=== PATIENT | female | born 1970 | race American Indian/Alaskan Native ===

== ENCOUNTER 2017-10-29 10:21 | Emergency (ER) | payer MEDICAID ==
[2017-10-29 10:23] VITALS: BMI 47.8
[2017-10-29] MEDS ORDERED: Sodium Chloride 0.9% 500 ML IV STA (11:05)
--- NOTE | 2017-10-29 11:14 | ED PDOC ---
HPI: General Adult Time Seen by Provider: 10/29/17 10:29 Chief Complaint (Nursing): Dizziness/Lightheaded Chief Complaint (Provider): Dizziness History Per: Patient History/Exam Limitations: no limitations Onset/Duration Of Symptoms: Days Additional Complaint(s): Pt. with dizziness like room spinning. Has room spinning sensation. Occurs on sudden movement and goes away when still. No numbness, tingles, nasuea, vomt, diarrhea, weakness, chest pain, dyspnea, headaches, vision changes. Had dialysis yesterday. Past Medical History Reviewed: Nursing Documentation, Vital Signs Vital Signs: Last Vital Signs Temp 98.5 F 10/29/17 10:24 Pulse 98 H 10/29/17 10:24 Resp 20 10/29/17 10:24 BP 122/87 10/29/17 10:24 Pulse Ox 96 10/29/17 11:16 - Medical History PMH: Anemia, Depression, HTN, End Stage Renal Disease, Chronic Kidney Disease Denies: Asthma (denies), Diabetes, Hepatitis, HIV, Seizures, Sexually Transmitted Disease - Surgical History Surgical History: - Family History Family History: States: Unknown Family Hx - Social History Alcohol: None - Home Medications Home Medications: Ambulatory Orders Medication Instructions Recorded Famotidine 20 mg PO DAILY 08/09/13 Folic Acid/Vitamin B Complex 1 tab PO DAILY 05/17/15 [Lysiplex] B Complex W-C No.20/Folic Acid 1 cap PO DAILY 04/08/17 [Ruy Caps Softgel] Cinacalcet [Sensipar] 30 mg PO DAILY 04/08/17 Metoprolol Tartrate [Lopressor] 25 mg PO Q12 tab 04/11/17 Mirtazapine [Remeron] 15 mg PO HS #30 tab 04/11/17 Sevelamer Carbonate [Renvela] 2,400 mg PO TIDWM 04/11/17 cloNIDine [Catapres] 0.1 mg PO Q12 tab 04/11/17 Meclizine [Meclizine*] 25 mg PO Q12 PRN #10 tab 10/29/17 - Allergies Allergies/Adverse Reactions: Allergies Allergy/AdvReac Type Severity Reaction Status Date / Time No Known Allergies Allergy Verified 04/08/17 11:13 Review of Systems ROS Statement: Except As Marked, All Systems Reviewed And Found Negative Neurological: Positive for: Dizziness Physical Exam - Reviewed Nursing Documentation Reviewed: Yes Vital Signs Reviewed: Yes - Physical Exam Appears: Positive for: Non-toxic, No Acute Distress Head Exam: Positive for: ATRAUMATIC, NORMAL INSPECTION, NORMOCEPHALIC Skin: Positive for: Normal Color, Warm, DRY Eye Exam: Positive for: EOMI, Normal appearance, PERRL ENT: Positive for: Normal ENT Inspection Neck: Positive for: Normal, Painless ROM Cardiovascular/Chest: Positive for: Regular Rate, Rhythm Respiratory: Positive for: CNT, Normal Breath Sounds Gastrointestinal/Abdominal: Positive for: Normal Exam, Soft. Negative for: Tenderness Back: Positive for: Normal Inspection. Negative for: L CVA Tenderness, R CVA Tenderness Extremity: Positive for: Normal ROM. Negative for: Tenderness, Pedal Edema Neurologic/Psych: Positive for: Alert, mayonnaise mixer II-XII, Oriented. Negative for: Motor/Sensory Deficits, Aphasia, Facial Droop - Laboratory Results Result Diagrams: 10/29/17 12:15 10/29/17 12:15 Interpretation Of Abn Labs: 12.4 wbc; elevated bun/cr - ECG ECG: Positive for: Interpreted By Me, Viewed By Me ECG Rhythm: Positive for: Normal QRS, Normal ST Segment O2 Sat by Pulse Oximetry: 96 Pulse Ox Interpretation: Normal - CT Scan/US ct Other Rad Studies (CT/US): Read By Radiologist Other Rad Interpretation: no acute - Progress ED Course And Treament: 1331: Stable. AAOx3. No more dizziness. Ambulated with no issues. Fu with pcp and make sure to get get dialysis tomorrow. Disposition - Clinical Impression Clinical Impression: Dizziness - Patient ED Disposition Is Patient to be Admitted: No Counseled Patient/Family Regarding: Studies Performed, Diagnosis, Need For Followup, Rx Given - Disposition Referrals: [facility] [Outside] - 10/30/17 Disposition: Routine/Home Disposition Time: 13:33 Condition: STABLE Additional Instructions: Return if not better in 3 days. Make sure to go to your dialysis tomorrow. Prescriptions: Meclizine [Meclizine*] 25 mg PO Q12 PRN #10 tab PRN Reason: Dizziness Instructions: Vertigo (a Type of Dizziness)
[2017-10-29 12:30] LABS: BASO # 0.1 K/uL (0.0-0.2); BASO % 1.2 % (0.0-2.0); EOS # 0.3 K/uL (0.0-0.7); EOS % 2.6 % (0.0-4.0); HEMOGLOBIN 11.9 g/dL (12.0-16.0); LYMPH # 3.5 K/uL (1.0-4.3); LYMPH % 28.4 % (20.0-40.0); MEAN CELL VOLUME 98.4 fl (81.0-99.0); MEAN CORPUSCULAR HEMOGLOBIN 32.7 pg (27.0-31.0); MEAN CORPUSCULAR HGB CONC 33.2 g/dL (33.0-37.0); MEAN PLATELET VOLUME 8.6 fl (7.2-11.7); MONO # 1.3 K/uL (0.0-0.8); MONO % 10.1 % (0.0-10.0); NEUT # 7.2 K/uL (1.8-7.0); NEUT % 57.7 % (50.0-75.0); NRBC % 0.1 % (0.0-0.0); RBC 3.64 Mil/uL (3.80-5.20); RED CELL DISTRIBUTION WIDTH 14.8 % (11.5-14.5); WHITE BLOOD COUNT 12.4 K/uL (4.8-10.8)
--- NOTE | 2017-10-29 12:49 | CT ---
PROCEDURE: CT HEAD WITHOUT CONTRAST. HISTORY: headache COMPARISON: Unenhanced head CT 10/13/2008. TECHNIQUE: Axial computed tomography images were obtained through the head/brain without intravenous contrast. Radiation dose: Total exam DLP = 751.32 mGy-cm. This CT exam was performed using one or more of the following dose reduction techniques: Automated exposure control, adjustment of the mA and/or kV according to patient size, and/or use of iterative reconstruction technique. FINDINGS: HEMORRHAGE: No intracranial hemorrhage. BRAIN: Normal whittaker-white matter differentiation and density are appreciated throughout the cerebrum and cerebellum with the brainstem appearing unremarkable as well. There is no mass effect. There is no suspicious extra-axial fluid collection and the midline brain anatomy appears diffusely unremarkable. VENTRICLES: Unremarkable. No hydrocephalus. CALVARIUM: Unremarkable. PARANASAL SINUSES: Unremarkable as visualized. No significant inflammatory changes. MASTOID AIR CELLS: Unremarkable as visualized. No inflammatory changes. OTHER FINDINGS: None. IMPRESSION: Unremarkable unenhanced head CT. No significant interval change compared prior to head CT dated 10/13/2008.
[2017-10-29 12:51] LABS: TROPONIN I 0.012 ng/mL (0.00-0.120)
[2017-10-29 12:54] LABS: CALCIUM 8.5 mg/dL (8.4-10.2)
[2017-10-29 13:56] VITALS: BP 115/85; PULSE 70; RESP 16; TEMP 98.2
[2017-10-29 13:57] VITALS: O2SAT 97
--- NOTE | 2017-10-30 09:18 | CARD ---
APPROVED REPORT EKG Measurement Heart [id number] <Conclusion> Normal sinus rhythm Biatrial enlargement Abnormal ECG
== END 2017-10-29 14:08 | disposition home or self-care (01) ==
LOC: H.ER 10:21
DX: R42 Dizziness and giddiness (principal); E11.22 Type 2 diabetes mellitus with diabetic chronic kidney disease; F32.9 Major depressive disorder, single episode, unspecified; I12.0 Hypertensive chronic kidney disease with stage 5 chronic kidney disease or end stage renal disease; I51.7 Cardiomegaly; N18.6 End stage renal disease; Z99.2 Dependence on renal dialysis
CPT/HCPCS: 70450; 80048; 81025; 84484; 85025; 93005; 96360; 99285; J7040

== ENCOUNTER 2018-09-04 09:49 | Inpatient (IN) | payer MEDICAID ==
[2018-09-04 09:49] VITALS: BMI 47.8
[2018-09-04] MEDS ORDERED: Sodium Chloride 0.9% 1,000 ML IV STA ×2 (11:48→15:46)
--- NOTE | 2018-09-04 12:08 | ED PDOC ---
HPI: Abdomen Time Seen by Provider: 09/04/18 11:35 Chief Complaint (Nursing): Abdominal Pain Chief Complaint (Provider): Adominal pain History Per: Patient History/Exam Limitations: no limitations Location Of Pain/Discomfort: RUQ Associated Symptoms: Nausea, Vomiting Additional Complaint(s): 48 year old female presents to the ER with abdominal pain worse in RUQ since Friday. Patient just returned from a trip to [place]. She had no missed dialysis appointments. Patient states, on Friday, she began to vomit and thought dialysis on would help. However, she continued to feel nauseous and vomited today. PMD: Gerber K[facility]ns Past Medical History Reviewed: Historical Data, Nursing Documentation, Vital Signs Vital Signs: Last Vital Signs Temp 98.4 F 09/04/18 09:54 Pulse 89 09/04/18 09:54 Resp 20 09/04/18 09:54 BP 141/106 H 09/04/18 09:54 Pulse Ox 98 09/04/18 09:54 - Medical History PMH: Anemia, Depression, HTN, End Stage Renal Disease, Chronic Kidney Disease Denies: Asthma (denies), Diabetes, Hepatitis, HIV, Seizures, Sexually Transmitted Disease - Surgical History Surgical History: - Family History Family History: States: Unknown Family Hx - Home Medications Home Medications: Ambulatory Orders Medication Instructions Recorded B Complex W-C No.20/Folic Acid 1 cap PO DAILY 04/08/17 [Ruy Caps Softgel] Cinacalcet [Sensipar] 30 mg PO DAILY 04/08/17 Famotidine [Pepcid] 20 mg PO DAILY 09/04/18 Metoprolol Tartrate [Lopressor] 25 mg PO Q12 09/04/18 Sevelamer Carbonate [Renvela] 2,400 mg PO TID 09/04/18 cloNIDine [Catapres] 0.1 mg PO Q12 09/04/18 Amoxicillin/Clavulanate [Augmentin 1 tab PO DAILY #7 tab 09/10/18 875 MG-125 MG] traMADol [Ultram] 50 mg PO Q12 PRN #10 tab 09/10/18 - Allergies Allergies/Adverse Reactions: Allergies Allergy/AdvReac Type Severity Reaction Status Date / Time No Known Allergies Allergy Verified 09/04/18 10:01 Review of Systems ROS Statement: Except As Marked, All Systems Reviewed And Found Negative Gastrointestinal: Positive for: Nausea, Vomiting, Abdominal Pain (worse in the RUQ) Physical Exam - Reviewed Nursing Documentation Reviewed: Yes Vital Signs Reviewed: Yes - Physical Exam Appears: Positive for: No Acute Distress Head Exam: Positive for: ATRAUMATIC, NORMOCEPHALIC Skin: Positive for: Normal Color, Warm, Dry Eye Exam: Positive for: Normal appearance Neck: Positive for: Normal, Painless ROM Cardiovascular/Chest: Positive for: Regular Rate, Rhythm Respiratory: Positive for: Normal Breath Sounds. Negative for: Wheezing, Respiratory Distress Gastrointestinal/Abdominal: Positive for: Tenderness (diffuse abdominal tenderness worse in the RUQ) Extremity: Positive for: Normal ROM Neurological/Psych: Positive for: Awake, Alert, Normal Tone - Laboratory Results Result Diagrams: 09/10/18 04:20 09/10/18 04:20 - ECG O2 Sat by Pulse Oximetry: 98 (RA) Pulse Ox Interpretation: Normal Medical Decision Making Medical Decision Making: Initial Impression: Workup for abdominal pain Initial Plan: --Labs --Zofran --Morhpine --CT abd/pelvis --Reassess pt 15:00 Patient signed out to Dr. Root. Pending CT abd/pelvis. Scribe Attestation: Documented by Darinel Zimmer acting as a scribe for Catia Ventura MD. Provider Scribe Attestation: All medical record entries made by the Scribe were at my direction and personally dictated by me. I have reviewed the chart and agree that the record accurately reflects my personal performance of the history, physical exam, medical decision making, and the department course for this patient. I have also personally directed, reviewed, and agree with the discharge instructions and disposition. Disposition - Clinical Impression Clinical Impression: ESRD (end stage renal disease) on dialysis, Bowel obstruction - Disposition Disposition: Transfer of Care Disposition Time: 15:00 Condition: FAIR Patient Signed Over To: Shabnam Root
[2018-09-04 12:16] LABS: BASO # 0.1 K/uL (0.0-0.2); BASO % 0.6 % (0.0-2.0); EOS # 0.1 K/uL (0.0-0.7); EOS % 0.6 % (0.0-4.0); HEMOGLOBIN 11.3 g/dL (12.0-16.0); LYMPH # 2.5 K/uL (1.0-4.3); LYMPH % 21.2 % (20.0-40.0); MEAN CELL VOLUME 98.8 fl (81.0-99.0); MEAN CORPUSCULAR HEMOGLOBIN 33.3 pg (27.0-31.0); MEAN CORPUSCULAR HGB CONC 33.7 g/dL (33.0-37.0); MEAN PLATELET VOLUME 8.8 fl (7.2-11.7); MONO # 1.4 K/uL (0.0-0.8); MONO % 12.1 % (0.0-10.0); NEUT # 7.8 K/uL (1.8-7.0); NEUT % 65.5 % (50.0-75.0); RBC 3.4 Mil/uL (3.80-5.20); RED CELL DISTRIBUTION WIDTH 14.3 % (11.5-14.5); WHITE BLOOD COUNT 11.9 K/uL (4.8-10.8)
[2018-09-04 12:42] LABS: ALB/GLOB RATIO 1.1 (1.0-2.1); ALBUMIN 4.4 g/dL (3.5-5.0); CALCIUM 9.1 mg/dL (8.4-10.2)
--- NOTE | 2018-09-04 13:13 | RAD ---
Date of service: 09/04/2018 HISTORY: possible admission COMPARISON: 04/08/2017. FINDINGS: LUNGS: The lungs are well inflated and clear. There is linear atelectasis/scarring in the right mid lung, right lower lobe and left upper lobe. PLEURA: No pleural effusions or pneumothorax. CARDIOVASCULAR: The heart is normal in size. No aortic atherosclerotic calcifications present. OSSEOUS STRUCTURES: Within normal limits for the patient's age. VISUALIZED UPPER ABDOMEN: Normal. OTHER FINDINGS: None. IMPRESSION: No active pulmonary disease.
--- NOTE | 2018-09-04 15:41 | CT ---
Date of service: 09/04/2018 PROCEDURE: CT Abdomen and Pelvis without intravenous contrast HISTORY: abd pain/vomiting COMPARISON: Abdomen pelvis CT without contrast 04/25/2009. TECHNIQUE: Helical CT of the abdomen and pelvis was performed without oral or intravenous contrast as per referring physician request. Coronal and sagittal reformats were generated.. Contrast dose: None Radiation dose: Total exam DLP = 1239.91 mGy-cm. This CT exam was performed using one or more of the following dose reduction techniques: Automated exposure control, adjustment of the mA and/or kV according to patient size, and/or use of iterative reconstruction technique. FINDINGS: LOWER THORAX: Interval mild cardiomegaly is noted as well as linear atelectasis or fibrosis. Thickening medial basilar pleura is not excluded at the left lower lobe versus atelectasis. LIVER: Hepatomegaly again evident no gross lesion or ductal dilatation. GALLBLADDER AND BILE DUCTS: Gallbladder is mildly distended with sludge difficult to exclude in the lumen. PANCREAS: Unremarkable. No gross lesion or ductal dilatation. SPLEEN: Unremarkable appearing. Unremarkable. ADRENALS: Unremarkable. No mass. KIDNEYS AND URETERS: Mildly atrophic bilateral kidneys reiterated markedly smaller in size in the interval. VASCULATURE: Nonaneurysmal abdominal aortic calcific atherosclerotic changes are identified. BOWEL: Stomach is collapsed not well evaluated. Large bowel does not appear obstructed with moderate amount of retained fecal material scattered in various segments. There is a left paraumbilical hernia appreciated involving a short segment of small bowel which does not appear thickened at the level of the her the hernia, which measures a neck of 2.5 cm. Nevertheless, developing small bowel obstruction is appreciated related to this bowel loop with chronic Jackie dilated postoperative bowel changes seen at the left lower quadrant/left flank once again. Distal small bowel appears collapsed. APPENDIX: Not identified. No CT evidence of appendicitis. PERITONEUM: Unremarkable. No free fluid. No free air. LYMPH NODES: Unremarkable. No enlarged lymph nodes. BLADDER: Completely decompressed. Limited evaluation the mural thickness. REPRODUCTIVE: Prior hysterectomy again evident. BONES: No acute fracture. OTHER FINDINGS: None. IMPRESSION: Findings most compatible with mid small bowel obstruction related to left paraumbilical hernia without obvious incarceration evident. Clinically correlate further. Postoperative bowel changes left mendel abdomen once again evident with a dilated segment of questionable small bowel again evident unrelated to aforementioned bowel obstruction. Interval marked bilateral renal atrophy. Possible sludge in gallbladder. No pericholecystic reaction or gross mural thickening evident. Other lesser findings as discussed above.
--- NOTE | 2018-09-04 15:49 | ED PDOC ---
- Laboratory Results Result Diagrams: 09/04/18 12:04 09/04/18 12:04 Lab Results: Total Bilirubin 1.0 mg/dl (0.2-1.3) 09/04/18 12:04 AST 37 U/L (14-36) H D 09/04/18 12:04 ALT 23 U/L (9-52) 09/04/18 12:04 Alkaline Phosphatase 109 U/L (38-126) 09/04/18 12:04 Total Protein 8.4 G/DL (6.3-8.2) H 09/04/18 12:04 Albumin 4.4 g/dL (3.5-5.0) 09/04/18 12:04 Globulin 4.0 gm/dL (2.2-3.9) H 09/04/18 12:04 Albumin/Globulin Ratio 1.1 (1.0-2.1) 09/04/18 12:04 Lipase 249 U/L (23-300) 09/04/18 12:04 - ECG O2 Sat by Pulse Oximetry: 98 (RA) Medical Decision Making Medical Decision Makin:00 Patient signed out to this provider from Dr. Ventura, pending CT scan, reassessment, and final ER disposition. Labs reviewed and demonstrate renal failure which is consistent with patient's history. Labs show mild anemia, mild leukocytosis, and no electrolyte abnormalities. 15:38 CT abd/pelvis FINDINGS: LOWER THORAX: Interval mild cardiomegaly is noted as well as linear atelectasis or fibrosis. Thickening medial basilar pleura is not excluded at the left lower lobe versus atelectasis. LIVER: Hepatomegaly again evident no gross lesion or ductal dilatation. GALLBLADDER AND BILE DUCTS: Gallbladder is mildly distended with sludge difficult to exclude in the lumen. PANCREAS: Unremarkable. No gross lesion or ductal dilatation. SPLEEN: Unremarkable appearing. Unremarkable. ADRENALS: Unremarkable. No mass. KIDNEYS AND URETERS: Mildly atrophic bilateral kidneys reiterated markedly smaller in size in the interval. VASCULATURE: Nonaneurysmal abdominal aortic calcific atherosclerotic changes are identified. BOWEL: Stomach is collapsed not well evaluated. Large bowel does not appear obstructed with moderate amount of retained fecal material scattered in various segments. There is a left paraumbilical hernia appreciated involving a short segment of small bowel which does not appear thickened at the level of the her the hernia, which measures a neck of 2.5 cm. Nevertheless, developing small bowel obstruction is appreciated related to this bowel loop with chronic Jackie dilated postoperative bowel changes seen at the left lower quadrant/left flank once again. Distal small bowel appears collapsed. APPENDIX: Not identified. No CT evidence of appendicitis. PERITONEUM: Unremarkable. No free fluid. No free air. LYMPH NODES: Unremarkable. No enlarged lymph nodes. BLADDER: Completely decompressed. Limited evaluation the mural thickness. REPRODUCTIVE: Prior hysterectomy again evident. BONES: No acute fracture. OTHER FINDINGS: None. IMPRESSION: Findings most compatible with mid small bowel obstruction related to left paraumbilical hernia without obvious incarceration evident. Clinically correlate further. Postoperative bowel changes left mendel abdomen once again evident with a dilated segment of questionable small bowel again evident unrelated to aforementioned bowel obstruction. Interval marked bilateral renal atrophy. Possible sludge in gallbladder. No pericholecystic reaction or gross mural thickening evident. Other lesser findings as discussed above. 16:00 Discussed findings with patient and that she would need to be hospitalized. Discussed with Hoang Granados, nurse practitioner for [place], who requests consult for Dr. Spivey, surgery. 16:[address] Spivey who recommends NPO and requests call to residential service technician for evaluation. Scribe Attestation: Documented by Darinel Zimmer acting as a scribe for Shabnam Root MD. Provider Scribe Attestation: All medical record entries made by the Scribe were at my direction and personally dictated by me. I have reviewed the chart and agree that the record accurately reflects my personal performance of the history, physical exam, medical decision making, and the department course for this patient. I have also personally directed, reviewed, and agree with the discharge instructions and disposition. Disposition Counseled Patient/Family Regarding: Studies Performed, Diagnosis - Clinical Impression Clinical Impression: ESRD (end stage renal disease) on dialysis, Bowel obstruction - POA Present On Arrival: None - Disposition Disposition: Admitted as In-Patient Disposition Time: 16:00 Condition: FAIR
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
[2018-09-04] MEDS ORDERED: Iohexol 240 (50 ml) PO ONE (19:07)
[2018-09-04] MEDS: HYDROmorphone 0.5 mg/0.5 ml ISec IVP PRN (20:01)
[2018-09-04] MEDS ORDERED: Iohexol 240 (50 ml) ONE (20:07)
--- NOTE | 2018-09-04 20:24 | CARD ---
APPROVED REPORT Date of service: 09/04/2018 EKG Measurement Heart [id number] <Conclusion> Normal sinus rhythm Left atrial enlargement Otherwise normal ECG
[2018-09-05] MEDS ORDERED: Morphine 4 MG/ML VIAL IVP ONE ×3 (00:15→00:21)
[2018-09-05] MEDS ORDERED: Morphine 4 MG/ML VIAL ONE (00:20)
[2018-09-05] MEDS ORDERED: Lidocaine 2% Jelly (Uro-Jet) ONE (00:34)
[2018-09-05 02:01] LABS: PROTHROMBIN TIME 11.1 Seconds (9.8-13.1)
[2018-09-05 02:04] LABS: PARTIAL THROMBOPLASTIN TIME 29.1 Seconds (25.6-37.1)
[2018-09-05] MEDS ORDERED: Propofol 10 mg/ml Inj (20 ML) ONE (02:15)
[2018-09-05] MEDS ORDERED: Rocuronium 10 mg/ml (5 ml) ONE ×2 (02:15→03:51)
[2018-09-05] MEDS ORDERED: Succinylcholine Chloride 20 mg/ml Syr (5 ml) IV ONE (02:16)
[2018-09-05] MEDS ORDERED: Bupivacaine 0.5% Inj(30mL) ONE (02:18)
[2018-09-05] MEDS ORDERED: Sevoflurane - Inhalation Anesthetic Liq (250 ml) ONE (02:23)
[2018-09-05] MEDS ORDERED: metroNIDAZOLE 500mg/100ml NS 100 ML IVPB ONE (03:06)
[2018-09-05] MEDS ORDERED: Sodium Chloride 0.9% 1,000 ML IV ONE (03:15)
[2018-09-05] MEDS ORDERED: ePHEDrine 50 mg/ml Inj ONE (03:26)
[2018-09-05] MEDS ORDERED: Phenylephrine 10 mg/ml Inj ONE (03:27)
[2018-09-05] MEDS ORDERED: Neostigmine 1:1000 (1 mg/ml) Inj ONE (03:58)
--- NOTE | 2018-09-05 05:54 | PCM.SURG1 ---
Surgeon's Initial Post Op Note - Surgeon's Notes Surgeon: Dr. Ferro Utility Assembler: Dr. Barroso PGY3 Type of Anesthesia: General Endo Pre-Operative Diagnosis: incarcerated ventral incisional hernia Operative Findings: see operative report Post-Operative Diagnosis: same Operation Performed: incarcerated incisional ventral hernia primary repair. extensive lysis of adhesions. serosal small bowel repair Specimen/Specimens Removed: hernia sac Estimated Blood Loss: EBL {In ML}: 20 Blood Products Given: N/A Drains Used: No Drains Post-Op Condition: Good Date of Surgery/Procedure: 09/05/18 Time of Surgery/Procedure: 02:50
[2018-09-05] MEDS ORDERED: HYDROmorphone 0.5 mg/0.5 ml ISec IVP PRN (06:14)
[2018-09-05] MEDS ORDERED: Sodium Chloride 0.9% 1,000 ML IV SCH (06:15)
[2018-09-05] MEDS ORDERED: Albuterol 0.042% Inhal Sol (1.25 mg/3 mL) UD INH STA (06:22)
[2018-09-05] MEDS ORDERED: Albuterol 0.083% Inhal Sol (2.5 mg/3 mL) UD ONE (06:24)
[2018-09-05 07:07] LABS: BASO % 0.2 % (0.0-2.0); EOS % 0.4 % (0.0-4.0); HEMOGLOBIN 11.2 g/dL (12.0-16.0); LYMPH # 1.5 K/uL (1.0-4.3); LYMPH % 15.6 % (20.0-40.0); MEAN CELL VOLUME 105.6 fl (81.0-99.0); MEAN CORPUSCULAR HEMOGLOBIN 33.6 pg (27.0-31.0); MEAN CORPUSCULAR HGB CONC 31.8 g/dL (33.0-37.0); MEAN PLATELET VOLUME 9.3 fl (7.2-11.7); MONO # 0.5 K/uL (0.0-0.8); MONO % 5.1 % (0.0-10.0); NEUT # 7.7 K/uL (1.8-7.0); NEUT % 78.7 % (50.0-75.0); NRBC % 0.1 % (0.0-0.0); RBC 3.32 Mil/uL (3.80-5.20); RED CELL DISTRIBUTION WIDTH 15.1 % (11.5-14.5); WHITE BLOOD COUNT 9.8 K/uL (4.8-10.8)
[2018-09-05 07:31] LABS: CALCIUM 8.3 mg/dL (8.4-10.2)
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
[2018-09-05] MEDS ORDERED: HYDROmorphone 0.5 mg/0.5 ml ISec IVP STA (11:10)
[2018-09-05] MEDS: ceFAZolin 2 GM in Sodium Chloride 0.9% 100 ML IVPB SCH ×3 (11:30→18:59)
[2018-09-05] MEDS ORDERED: HYDROmorphone 0.5 mg/0.5 ml ISec IVP ONE (11:30)
--- NOTE | 2018-09-05 11:36 | OP ---
PROCEDURE DATE: 09/05/2018 PREOPERATIVE DIAGNOSIS: Incarcerated incisional hernia. POSTOPERATIVE DIAGNOSIS: Incarcerated incisional hernia. SURGEON: Dickson Ferro MD TRUST MAIL CLERK: Cecil Barroso DO PROCEDURE: Exploratory laparotomy, extensive lysis of adhesions, repair of serosal tear, primary repair of incarcerated incisional hernia. TYPE OF ANESTHESIA: General. FINDINGS: The patient had about 2 x 1.5 fascial defect through which a loop of small bowel was incarcerated, the loop of bowel was reduced. The knuckle of bowel had a circumferential marking from the cite of incarceration, but it was viable, not ischemic. The patient had extensive adhesions due to multiple previous surgeries. There was a serosal tear, which was repaired with 3-0 silk. SPECIMEN: Hernia sac. ESTIMATED BLOOD LOSS: 20 mL. COMPLICATIONS: None. CONDITION: Stable. BRIEF DESCRIPTION: This is a pleasant 48-year-old female, who presented to the emergency room with worsening abdominal pain over a four to five-day period. The patient had an extensive surgical history. She had four previous C-sections, a previous exploratory laparotomy, and a previous splenectomy. Pain increased in intensity on Friday and continued to worsen up until . The patient had associated nausea and multiple episodes of vomiting at home. Initially when patient was seen in the emergency room, she was still complaining of abdominal pain, but no further episodes of vomiting. Initially the patient had a noncontrast CT scan, which showed an incisional hernia with a loop of small bowel. Given the fact that the patient was at that point asymptomatic, a repeat CAT scan was ordered and the patient was placed under observation. The patient had a repeat CAT scan with p.o. contrast, which again showed a loop of small bowel incarcerated within this fascial defect. The patient was then reevaluated later on during the day and her condition had worsened. She was complaining of severe diffuse abdominal pain mostly localized to the hernia site. The patient then again had multiple episodes of bilious vomiting. The patient was then reexamined and her abdomen had some rebound tenderness to the lower abdomen and tenderness to the incision site with light palpation. Given the acute change in clinical status and the findings on the CT with p.o contrast showing incarcerated bowel, I discussed with the patient the need for surgical intervention. I explained to the patient that she will need a laparotomy for reduction of this incarcerated hernia. The patient was explained the risks and benefits of procedure not limited to bleeding, infection, possible bowel resection, possible injury to surrounding structures. The patient agreed and surgical consent was obtained. DESCRIPTION OF PROCEDURE: On the date of procedure, the patient was brought to the operating room where she was placed in supine position. Bilateral sequential devices were placed to lower extremities. The patient was given prophylactic antibiotics. The patient was placed under general endotracheal anesthesia. The patient was then prepped and draped in the usual sterile fashion. After an adequate timeout, a vertical midline incision was made over the previous scars using 10-blade. The subcutaneous tissue was transected using the 10-blade to avoid any injury to bowel or surrounding structures. Adequate hemostasis was obtained. Once we transected the subcutaneous tissue, we were able to identify fascia and the fascia was incised. Upon entering the abdominal cavity, we noted that there was multiple adhesions to the abdominal wall from patient's previous surgery. These adhesions were lysed in a combination of sharp dissection and with the aid of the cautery. Careful attention was paid not to injure the bowel. After an extensive period of lysing adhesions, we are able to open the abdominal cavity. At this point, we are able to identify a left periumbilical hernia defect of about 2 x 1.5 cm. There was loop of small bowel incarcerated within this defect. After lysing some adhesions around the herniated bowel, we were able to reduce the small bowel without any issue. The small bowel was examined and we noted a circumferential marking around the knuckle of small bowel, but the bowel was viable and not ischemic. At this point, we focused our attention to the hernia sac and the hernia sac was excised. We now focused our attention to examine the proximal small bowel. There was some difficulty in examining the small bowel due to the extensive interloop adhesions both proximal and distal to the small bowel, but proximally and distally, we are able to see improved distention after the hernia was reduced. We then examined the small bowel and we did note a small serosal tear. We proceeded to repair the serosal tear with 3-0 silk suture. The serosal tear was repaired using a Lembert stitch. After fixing the serosal tear, we continued to examine the small bowel, which showed improved distention and viable. At this point, we decided to reapproximate the fascia and close the defect using an interrupted 0 Prolene stitch. We also added an interrupted 0 Vicryl stitch along the fascia. At this point, we proceeded to reapproximate the skin using ruthie. The wound was infiltrated with local anesthetic and sterile dressing was applied. The patient tolerated the procedure well and was transferred to recovery room in stable condition. At the end of the procedure, there was an adequate count to all sponges, needles, and lap pads. Dickson Ferro MD RYAN
--- NOTE | 2018-09-05 18:10 | CT ---
Date of service: 09/04/2018 PROCEDURE: CT abdomen pelvis HISTORY: SBO, abdominal pain COMPARISON: Comparison made with CT scan of the abdomen pelvis 09/04/2018 at 1512 hr. TECHNIQUE: Contiguous axial images of the abdomen and pelvis performed following administration of oral contrast material. IV contrast not injected per request. Study is therefore somewhat limited due to the lack of circulating intravenous contrast material. Reformats generated. Radiation dose: Total exam DLP = 826.61 mGy-cm. This CT exam was performed using one or more of the following dose reduction techniques: Automated exposure control, adjustment of the mA and/or kV according to patient size, and/or use of iterative reconstruction technique. FINDINGS: LOWER THORAX: There are atelectatic/scarring changes seen in both lung bases including the middle lobe and lingular regions. There is also some mild subsegmental atelectasis in the left posterior sulcus. No evidence of basilar pneumothorax. Heart is mildly enlarged. No significant pericardial effusion. Small hiatal hernia with evidence of minor reflux.. LIVER: Unremarkable. No gross lesion or ductal dilatation. GALLBLADDER AND BILE DUCTS: Intraluminal gallbladder sludge. PANCREAS: Pancreas appears atrophic and fatty replaced. SPLEEN: Unremarkable. No splenomegaly. ADRENALS: No adrenal lesions KIDNEYS AND URETERS: Kidneys remain atrophic. BLADDER: The urinary bladder is incompletely distended with thick-walled appearance likely in part due to poorly functioning or nonfunctioning kidneys however cystitis not excluded. REPRODUCTIVE: Apparent hysterectomy. APPENDIX: No evidence of acute appendicitis. BOWEL: Evaluation of the bowel is slightly limited due to incomplete opacification. The stomach is distended with oral contrast material some food debris and moderate amount of air. There are several mildly distended loops of small bowel with at least 1 segment of small bowel is markedly distended in the left mid abdomen. There is a knuckle of small bowel within a umbilical hernia that may be incarcerated possibly strangulated. Clinical correlation recommended. PERITONEUM: Unremarkable. No fluid collection. No free air. No evidence of free intraperitoneal air. No free or loculated fluid collections. LYMPH NODES: Unremarkable. No enlarged lymph nodes. VASCULATURE: Unremarkable. No aortic aneurysm. No aortic atherosclerotic calcification or mural plaque present. BONES: Mild multilevel degenerative spondylosis of the lower thoracic and lumbar spine. OTHER FINDINGS: None. IMPRESSION: There is a small umbilical hernia that contains a knuckle of small bowel that incarcerated. Rule out early strangulation. Recommend follow-up radiographs of the abdomen to assess for passage of contrast material into the large bowel. Atrophic kidneys. Urinary bladder is incompletely distended. Apparent hysterectomy. Probable gallbladder sludge. Mild cardiomegaly. Mild subsegmental atelectasis left posterior sulcus with mild scarring seen both lung bases well as lingular and middle lobe regions
[2018-09-05] MEDS: HYDROmorphone 0.5 mg/0.5 ml ISec IVP PRN (19:00)
[2018-09-06] MEDS: HYDROmorphone 0.5 mg/0.5 ml ISec IVP PRN ×3 (00:13→11:47)
[2018-09-06] MEDS: metroNIDAZOLE 500mg/100ml NS 100 ML IVPB SCH ×2 (00:14→09:51)
[2018-09-06 06:45] LABS: BASO % 0.4 % (0.0-2.0); EOS % 0.4 % (0.0-4.0); HEMOGLOBIN 10.8 g/dL (12.0-16.0); LYMPH # 1.8 K/uL (1.0-4.3); LYMPH % 15.6 % (20.0-40.0); MEAN CELL VOLUME 98.9 fl (81.0-99.0); MEAN CORPUSCULAR HEMOGLOBIN 33.1 pg (27.0-31.0); MEAN CORPUSCULAR HGB CONC 33.5 g/dL (33.0-37.0); MEAN PLATELET VOLUME 8.3 fl (7.2-11.7); MONO # 1.7 K/uL (0.0-0.8); MONO % 14.4 % (0.0-10.0); NEUT # 8.1 K/uL (1.8-7.0); NEUT % 69.2 % (50.0-75.0); RBC 3.26 Mil/uL (3.80-5.20); RED CELL DISTRIBUTION WIDTH 13.9 % (11.5-14.5); WHITE BLOOD COUNT 11.7 K/uL (4.8-10.8)
[2018-09-06 07:15] LABS: ALB/GLOB RATIO 1.1 (1.0-2.1); ALBUMIN 4.1 g/dL (3.5-5.0); CALCIUM 8.7 mg/dL (8.4-10.2)
--- NOTE | 2018-09-06 08:52 | CP.PCM.PN ---
<Rosina Caban - Last Filed: 09/06/18 11:28> Subjective - Date & Time of Evaluation Date of Evaluation: 09/06/18 Time of Evaluation: 07:00 - Subjective Subjective: GENERAL SURGERY PROGRESS NOTE FOR DR. QUIÑONES Patient seen and examined at bedside. Pt has not been OOB yet. She is using her IS. She denies flatus or BM yet. Pt is requesting hot tea. Denies nausea or vomiting. Pain controlled. Objective - Vital Signs/Intake and Output Vital Signs (last 24 hours): Temp Pulse Resp BP Pulse Ox 98.3 F 111 H 18 123/74 94 L 09/06/18 07:46 09/06/18 07:46 09/06/18 07:46 09/06/18 07:46 09/06/18 07:46 Intake and Output: 09/06/18 09/06/18 06:59 18:59 Intake Total 0 100 Output Total 120 350 Balance -120 -250 - Medications Medications: Current Medications Cinacalcet (Sensipar) 30 mg PO DAILY [facility] Clonidine HCl (Catapres) 0.1 mg PO Q12 [facility] Last Admin: 09/05/18 21:28 Dose: Not Given Famotidine (Pepcid) 20 mg PO DAILY [facility] Last Admin: 09/05/18 13:16 Dose: Not Given Heparin Sodium (Porcine) (Heparin) 5,000 units SC Q8 [facility]; Protocol Hydromorphone HCl (Dilaudid) 0.5 mg IVP Q4H PRN PRN Reason: Pain, moderate (4-7) Stop: 09/06/18 17:46 Last Admin: 09/06/18 04:55 Dose: 0.5 mg Metronidazole (Flagyl 500mg/100ml Ns) 100 mls @ 100 mls/hr IVPB Q8 [facility]; Protocol Last Admin: 09/06/18 00:14 Dose: 100 mls/hr Metoprolol Tartrate (Lopressor) 25 mg PO Q12 [facility] Last Admin: 09/05/18 21:27 Dose: Not Given Ondansetron HCl (Zofran Inj) 4 mg IVP Q6 PRN PRN Reason: Nausea/Vomiting Last Admin: 09/05/18 00:25 Dose: 4 mg Sevelamer Carbonate (Renvela) 2,400 mg PO TID [facility] Last Admin: 09/05/18 17:10 Dose: Not Given - Labs Labs: 09/06/18 06:01 09/06/18 06:01 PT 11.1 Seconds (9.8-13.1) 09/05/18 01:51 INR 1.0 09/05/18 01:51 APTT 29.1 Seconds (25.6-37.1) 09/05/18 01:51 - Constitutional Appears: Non-toxic, No Acute Distress - Head Exam Head Exam: ATRAUMATIC, NORMAL INSPECTION - Eye Exam Eye Exam: EOMI, Normal appearance - Respiratory Exam Respiratory Exam: NORMAL BREATHING PATTERN. absent: Respiratory Distress - Cardiovascular Exam Cardiovascular Exam: +S1, +S2 - GI/Abdominal Exam GI & Abdominal Exam: Soft, Tenderness (mild tr-incisional tenderness). absent: Distended, Firm, Guarding, Rigid, Rebound Additional comments: NG tube with ~400cc output overnight Abdominal binder in place - Neurological Exam Neurological Exam: Alert, Awake, Oriented x3 - Psychiatric Exam Psychiatric exam: Normal Affect, Normal Mood - Skin Skin Exam: Dry, Normal Color, Warm Assessment and Plan - Assessment and Plan (Free Text) Assessment: 48yo F with incarcerated incisional hernia s/p incisional ventral hernia primary repair POD#1 - NG tube with ~400cc output, continue NG tube to suction - May give ice chips - Monitor for return of bowel function - Strongly encouraged OOB, ambulation, and IS use - DVT PPx: heparin SQ - Will discuss plan with Dr. Pillo Caban PGY-4 <Dickson Quiñones - Last Filed: 09/06/18 14:53> Objective - Vital Signs/Intake and Output Vital Signs (last 24 hours): Temp Pulse Resp BP Pulse Ox 100.2 F H 88 18 103/70 93 L 09/06/18 11:54 09/06/18 11:54 09/06/18 11:54 09/06/18 11:54 09/06/18 11:54 Intake and Output: 09/06/18 09/06/18 06:59 18:59 Intake Total 0 100 Output Total 120 350 Balance -120 -250 - Medications Medications: Current Medications Cinacalcet (Sensipar) 30 mg PO DAILY [facility] Last Admin: 09/06/18 09:40 Dose: 30 mg Clonidine HCl (Catapres) 0.1 mg PO Q12 [facility] Last Admin: 09/06/18 09:43 Dose: Not Given Heparin Sodium (Porcine) (Heparin) 5,000 units SC Q8 [facility]; Protocol Last Admin: 09/06/18 09:17 Dose: 5,000 units Hydromorphone HCl (Dilaudid) 0.5 mg IVP Q4H PRN PRN Reason: Pain, moderate (4-7) Stop: 09/06/18 17:46 Last Admin: 09/06/18 11:47 Dose: 0.5 mg Ondansetron HCl (Zofran Inj) 4 mg IVP Q6 PRN PRN Reason: Nausea/Vomiting Last Admin: 09/05/18 00:25 Dose: 4 mg - Labs Labs: 09/06/18 06:01 09/06/18 06:01 PT 11.1 Seconds (9.8-13.1) 09/05/18 01:51 INR 1.0 09/05/18 01:51 APTT 29.1 Seconds (25.6-37.1) 09/05/18 01:51 Assessment and Plan - Assessment and Plan (Free Text) Plan: pt seen at bedside, resting comfortable. Pt since she feel much better then prior to surgery. remains NPO with NGT in place, no BM or flatus. NGT: 350 overnight, 400cc in canister currently. gen: awake, alert, NAD abd: soft, obese, minimal incisional tenderness, midline dressing dry and intact -prn pain control -cont NGT to LWS -ice chips for comfort only -awaitin return of bowel function -change Po meds to IV ambulation
[2018-09-06] MEDS ORDERED: Metoprolol 1 mg/ml Inj IVP PRN ×2 (15:27→17:15)
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
--- NOTE | 2018-09-06 19:06 | CP.PCM.PN ---
Subjective - Date & Time of Evaluation Date of Evaluation: 09/06/18 Time of Evaluation: 19:06 - Subjective Subjective: pt seen and doing well no complaints fcnvd bw and consilts noted Objective - Vital Signs/Intake and Output Vital Signs (last 24 hours): Temp Pulse Resp BP Pulse Ox 98.5 F 88 18 97/68 L 94 L 09/06/18 15:56 09/06/18 15:56 09/06/18 15:56 09/06/18 15:56 09/06/18 15:56 Intake and Output: 09/06/18 09/07/18 18:59 06:59 Intake Total 300 Output Total 500 Balance -200 - Medications Medications: Current Medications Cinacalcet (Sensipar) 30 mg PO DAILY [facility] Last Admin: 09/06/18 09:40 Dose: 30 mg Clonidine HCl (Catapres) 0.1 mg PO Q12 [facility] Last Admin: 09/06/18 09:43 Dose: Not Given Heparin Sodium (Porcine) (Heparin) 5,000 units SC Q8 [facility]; Protocol Last Admin: 09/06/18 17:35 Dose: 5,000 units Lactic Acid (Lac-Hydrin 12% Lotion (225 G)) 1 applic TOP TID [facility] Metoprolol Tartrate (Lopressor) 5 mg IVP Q6 PRN PRN Reason: Heart rate >90 Ondansetron HCl (Zofran Inj) 4 mg IVP Q6 PRN PRN Reason: Nausea/Vomiting Last Admin: 09/05/18 00:25 Dose: 4 mg Pantoprazole Sodium (Protonix Inj) 40 mg IVP DAILY [facility] Last Admin: 09/06/18 17:30 Dose: Not Given - Labs Labs: 09/06/18 06:01 09/06/18 06:01 PT 11.1 Seconds (9.8-13.1) 09/05/18 01:51 INR 1.0 09/05/18 01:51 APTT 29.1 Seconds (25.6-37.1) 09/05/18 01:51
[2018-09-07 06:50] LABS: BASO # 0.1 K/uL (0.0-0.2); BASO % 0.5 % (0.0-2.0); EOS # 0.2 K/uL (0.0-0.7); EOS % 1.6 % (0.0-4.0); HEMOGLOBIN 10.3 g/dL (12.0-16.0); LYMPH # 2.3 K/uL (1.0-4.3); LYMPH % 17.1 % (20.0-40.0); MEAN CELL VOLUME 98.4 fl (81.0-99.0); MEAN CORPUSCULAR HEMOGLOBIN 32.2 pg (27.0-31.0); MEAN CORPUSCULAR HGB CONC 32.7 g/dL (33.0-37.0); MEAN PLATELET VOLUME 8.5 fl (7.2-11.7); MONO # 1.5 K/uL (0.0-0.8); MONO % 11.3 % (0.0-10.0); NEUT # 9.4 K/uL (1.8-7.0); NEUT % 69.5 % (50.0-75.0); RBC 3.2 Mil/uL (3.80-5.20); RED CELL DISTRIBUTION WIDTH 14.1 % (11.5-14.5); WHITE BLOOD COUNT 13.6 K/uL (4.8-10.8)
[2018-09-07 06:59] LABS: ALB/GLOB RATIO 1.1 (1.0-2.1); ALBUMIN 4.3 g/dL (3.5-5.0); CALCIUM 8.4 mg/dL (8.4-10.2)
--- NOTE | 2018-09-07 07:45 | CP.PCM.PN ---
Objective - Vital Signs/Intake and Output Vital Signs (last 24 hours): Temp Pulse Resp BP Pulse Ox 97.8 F 95 H 18 138/92 H 95 09/07/18 04:38 09/07/18 04:38 09/07/18 04:38 09/07/18 04:38 09/07/18 04:38 - Medications Medications: Current Medications Cinacalcet (Sensipar) 30 mg PO DAILY [facility] Last Admin: 09/06/18 09:40 Dose: 30 mg Clonidine HCl (Catapres) 0.1 mg PO Q12 [facility] Last Admin: 09/06/18 09:43 Dose: Not Given Heparin Sodium (Porcine) (Heparin) 5,000 units SC Q8 [facility]; Protocol Last Admin: 09/07/18 01:00 Dose: 5,000 units Hydromorphone HCl (Dilaudid) 0.5 mg SC Q4 PRN PRN Reason: Pain, severe (8-10) Last Admin: 09/07/18 04:13 Dose: 0.5 mg Lactic Acid (Lac-Hydrin 12% Lotion (225 G)) 1 applic TOP TID [facility] Metoprolol Tartrate (Lopressor) 5 mg IVP Q6 PRN PRN Reason: Heart rate >90 Ondansetron HCl (Zofran Inj) 4 mg IVP Q6 PRN PRN Reason: Nausea/Vomiting Last Admin: 09/05/18 00:25 Dose: 4 mg Pantoprazole Sodium (Protonix Inj) 40 mg IVP DAILY [facility] Last Admin: 09/06/18 17:30 Dose: Not Given - Labs Labs: 09/07/18 06:40 09/07/18 06:40 PT 11.1 Seconds (9.8-13.1) 09/05/18 01:51 INR 1.0 09/05/18 01:51 APTT 29.1 Seconds (25.6-37.1) 09/05/18 01:51
--- NOTE | 2018-09-07 09:16 | CP.PCM.PN ---
Subjective - Date & Time of Evaluation Date of Evaluation: 09/07/18 Time of Evaluation: 09:16 - Subjective Subjective: Patient awake and conscious not in acute distress. Patient complaining of presence of NG tube Feeling much better Objective - Vital Signs/Intake and Output Vital Signs (last 24 hours): Temp Pulse Resp BP Pulse Ox 98.4 F 96 H 18 148/90 94 L 09/07/18 07:56 09/07/18 07:56 09/07/18 07:56 09/07/18 07:56 09/07/18 07:56 - Medications Medications: Current Medications Cinacalcet (Sensipar) 30 mg PO DAILY [facility] Last Admin: 09/06/18 09:40 Dose: 30 mg Clonidine HCl (Catapres) 0.1 mg PO Q12 [facility] Last Admin: 09/06/18 09:43 Dose: Not Given Heparin Sodium (Porcine) (Heparin) 5,000 units SC Q8 [facility]; Protocol Last Admin: 09/07/18 01:00 Dose: 5,000 units Hydromorphone HCl (Dilaudid) 0.5 mg SC Q4 PRN PRN Reason: Pain, severe (8-10) Last Admin: 09/07/18 04:13 Dose: 0.5 mg Lactic Acid (Lac-Hydrin 12% Lotion (225 G)) 1 applic TOP TID [facility] Metoprolol Tartrate (Lopressor) 5 mg IVP Q6 PRN PRN Reason: Heart rate >90 Ondansetron HCl (Zofran Inj) 4 mg IVP Q6 PRN PRN Reason: Nausea/Vomiting Last Admin: 09/05/18 00:25 Dose: 4 mg Pantoprazole Sodium (Protonix Inj) 40 mg IVP DAILY [facility] Last Admin: 09/06/18 17:30 Dose: Not Given - Labs Labs: 09/07/18 06:40 09/07/18 06:40 PT 11.1 Seconds (9.8-13.1) 09/05/18 01:51 INR 1.0 09/05/18 01:51 APTT 29.1 Seconds (25.6-37.1) 09/05/18 01:51 - Constitutional Appears: No Acute Distress - Eye Exam Eye Exam: Conjunctival injection - ENT Exam ENT Exam: Mucous Membranes Moist - Neck Exam Neck Exam: absent: Lymphadenopathy - Respiratory Exam Respiratory Exam: NORMAL BREATHING PATTERN. absent: Chest Wall Tenderness - Cardiovascular Exam Cardiovascular Exam: absent: Gallop, JVD, Rubs - GI/Abdominal Exam GI & Abdominal Exam: Soft, Normal Bowel Sounds - Extremities Exam Extremities Exam: absent: Calf Tenderness - Back Exam Back Exam: absent: CVA tenderness (L), CVA tenderness (R) - Neurological Exam Neurological Exam: Alert - Psychiatric Exam Psychiatric exam: Normal Affect - Skin Skin Exam: absent: Cyanosis Assessment and Plan (1) Bowel obstruction Status: Acute (2) ESRD (end stage renal disease) on dialysis Assessment & Plan: End-stage renal disease on hemodialysis TTS Hypertension incarcerated incisional ventral hernia primary repair. extensive lysis of adhesions. serosal small bowel repair History of hyperphosphatemia and secondary hyperparathyroidism which has been stable and controlled History of hepatitis C which has been treated in the past Recommendation Continue hemodialysis as scheduled for tomorrow and TTS Surgical follow-up regarding the NG tube and post surgery follow-up Status: Acute
[2018-09-07] MEDS: Oxycodone/Acetaminophen 5/325 mg Tab PO PRN ×2 (11:20→16:39)
--- NOTE | 2018-09-07 11:24 | CP.PCM.PN ---
Subjective - Date & Time of Evaluation Date of Evaluation: 09/07/18 Time of Evaluation: 11:22 - Subjective Subjective: General Surgery Pt seen and examined this AM. She reports the NGT is hurting the back of her throat and she wants it out. She reports (+) flatus, (-) BM. She denies having abdominal pain besides incisional. She reports she wants to get OOB and walk today. (-) N/V. Afebrile. Labs and vitals noted. As per RN 0ml out from NGT from overnight and this morning. Yesterday's day shift with 150ml out. Documentation in i/o's chart not consistent. PE Gen: Pt laying in bed in NAD. Obese. HENT: NGT in left nare Cardio: s1s2 RRR Lungs: CTA bilaterally in anterior lung moore Abd: Soft, (+) tr incisional tenderness, (-) distention. Stapled midline surgical incision with mild serosanguinous drainage at superior aspect. (-) erythema, (-) induration, (-) bleeding A/P POD 2 s/p incarcerated incisional hernia primary repair w/ extensive lysis of adhesions and a serosal small bowel repair NGT removed May start clears Encourage OOB Continue DVT prophylaxis with Heparin Monitor labs and vitals Monitor diet tolerance Keep abdominal dressing clean and dry. Objective - Vital Signs/Intake and Output Vital Signs (last 24 hours): Temp Pulse Resp BP Pulse Ox 98.4 F 96 H 18 148/90 94 L 09/07/18 07:56 09/07/18 07:56 09/07/18 07:56 09/07/18 07:56 09/07/18 07:56 - Medications Medications: Current Medications Cinacalcet (Sensipar) 30 mg PO DAILY [facility] Last Admin: 09/06/18 09:40 Dose: 30 mg Clonidine HCl (Catapres) 0.1 mg PO Q12 [facility] Last Admin: 09/06/18 09:43 Dose: Not Given Heparin Sodium (Porcine) (Heparin) 5,000 units SC Q8 [facility]; Protocol Last Admin: 09/07/18 09:16 Dose: 5,000 units Hydromorphone HCl (Dilaudid) 0.5 mg SC Q4 PRN PRN Reason: Pain, severe (8-10) Last Admin: 09/07/18 04:13 Dose: 0.5 mg Lactic Acid (Lac-Hydrin 12% Lotion (225 G)) 1 applic TOP TID [facility] Last Admin: 09/07/18 09:16 Dose: 1 applic Metoprolol Tartrate (Lopressor) 5 mg IVP Q6 PRN PRN Reason: Heart rate >90 Ondansetron HCl (Zofran Inj) 4 mg IVP Q6 PRN PRN Reason: Nausea/Vomiting Last Admin: 09/05/18 00:25 Dose: 4 mg Pantoprazole Sodium (Protonix Inj) 40 mg IVP DAILY [facility] Last Admin: 09/07/18 09:17 Dose: Not Given - Labs Labs: 09/07/18 06:40 09/07/18 06:40 PT 11.1 Seconds (9.8-13.1) 09/05/18 01:51 INR 1.0 09/05/18 01:51 APTT 29.1 Seconds (25.6-37.1) 09/05/18 01:51
[2018-09-07] MEDS ORDERED: Lidocaine Hydrochloride 5 ML INJ ONE (11:55)
--- NOTE | 2018-09-07 12:04 | PCM.SURG1 ---
Surgeon's Initial Post Op Note - Surgeon's Notes Surgeon: Anand Rucker MD Occupational Work Experience Teacher: NONE Type of Anesthesia: Local Pre-Operative Diagnosis: Poor venous access, infection Operative Findings: Patent right brachial vein Post-Operative Diagnosis: Poor venous access, infection Operation Performed: Single lumen picc placment via right brachial vein, 39 CM. Tip is the SVC. Specimen/Specimens Removed: NONE Estimated Blood Loss: EBL {In ML}: 2 Blood Products Given: N/A Drains Used: No Drains Post-Op Condition: Fair Date of Surgery/Procedure: 09/07/18 Time of Surgery/Procedure: 11:55
--- NOTE | 2018-09-07 12:14 | VASCULAR ---
PROCEDURE: Date of procedure: 09/07/2018 Procedure: 1. Placement of a right arm PICC with ultrasound and fluoroscopic guidance, CPT 17868 2. PICC tip confirmation with spot radiograph and is in the superior vena cava Medications: 3cc 1 percent lidocaine Total Fluoro time: 14.4 Seconds Radiation: 2.13 MGy EBL: 2 cc HISTORY: Infection requiring long-term IV antibiotics TECHNIQUE: Following informed consent and procedure time-out, the patient was placed supine on the interventional table and the right arm prepped and draped in the usual sterile fashion. Ultrasound showed a patent and compressible right brachial vein. After the skin was anesthetized with lidocaine, the brachial vein was accessed with micro micropuncture technique using ultrasound guidance. A guidewire was then advanced under fluoroscopic guidance into the superior vena cava. An image documenting ultrasound guidance for vascular access was permanently saved. The length of the single-lumen 4 [place] PICC was trimmed to 39 centimeters and advanced through a peel-away sheath. The PICC was position with tip of PICC confirm a spot radiograph the superior vena cava. The PICC was secured to the patient's skin. The PICC was flushed. A biopatch and sterile dressing was applied. IMPRESSION: Placement of a single-lumen 4 [place] PICC trimmed to 39 centimeters via right brachial vein. The tip of the PICC is confirmed with spot radiograph and is in the superior vena cava.
--- NOTE | 2018-09-07 13:28 | CP.PCM.PN ---
Subjective - Date & Time of Evaluation Date of Evaluation: 09/07/18 Time of Evaluation: 13:27 - Subjective Subjective: pt eval'd at bedside. no complaints. case d/c w/ dr love pt requesting ngt out, pending surgical eval dictation # [id number] Objective - Vital Signs/Intake and Output Vital Signs (last 24 hours): Temp Pulse Resp BP Pulse Ox 97.9 F 94 H 18 152/96 H 96 09/07/18 12:33 09/07/18 12:47 09/07/18 12:33 09/07/18 12:47 09/07/18 12:33 - Medications Medications: Current Medications Cinacalcet (Sensipar) 30 mg PO DAILY [facility] Last Admin: 09/06/18 09:40 Dose: 30 mg Clonidine HCl (Catapres) 0.1 mg PO Q12 [facility] Last Admin: 09/06/18 09:43 Dose: Not Given Heparin Sodium (Porcine) (Heparin) 5,000 units SC Q8 [facility]; Protocol Last Admin: 09/07/18 09:16 Dose: 5,000 units Hydromorphone HCl (Dilaudid) 0.5 mg SC Q4 PRN PRN Reason: Pain, severe (8-10) Last Admin: 09/07/18 04:13 Dose: 0.5 mg Lactic Acid (Lac-Hydrin 12% Lotion (225 G)) 1 applic TOP TID [facility] Last Admin: 09/07/18 12:48 Dose: 1 applic Metoprolol Tartrate (Lopressor) 5 mg IVP Q6 PRN PRN Reason: Heart rate >90 Ondansetron HCl (Zofran Inj) 4 mg IVP Q6 PRN PRN Reason: Nausea/Vomiting Last Admin: 09/05/18 00:25 Dose: 4 mg Oxycodone/Acetaminophen (Percocet 5/325 Mg Tab) 1 tab PO Q4 PRN PRN Reason: Pain, moderate (4-7) Stop: 09/10/18 13:26 Pantoprazole Sodium (Protonix Inj) 40 mg IVP DAILY [facility] Last Admin: 09/07/18 12:47 Dose: 40 mg - Labs Labs: 09/07/18 06:40 09/07/18 06:40 PT 11.1 Seconds (9.8-13.1) 09/05/18 01:51 INR 1.0 09/05/18 01:51 APTT 29.1 Seconds (25.6-37.1) 09/05/18 01:51 Assessment and Plan (1) DVT prophylaxis Status: Acute (2) Bowel obstruction Status: Acute (3) ESRD (end stage renal disease) on dialysis Status: Acute (4) HTN (hypertension) Status: Acute
[2018-09-08 05:21] LABS: BASO # 0.1 K/uL (0.0-0.2); BASO % 0.4 % (0.0-2.0); EOS # 0.3 K/uL (0.0-0.7); HEMOGLOBIN 10.1 g/dL (12.0-16.0); LYMPH % 15.6 % (20.0-40.0); MEAN CELL VOLUME 98.2 fl (81.0-99.0); MEAN CORPUSCULAR HEMOGLOBIN 32.7 pg (27.0-31.0); MEAN CORPUSCULAR HGB CONC 33.3 g/dL (33.0-37.0); MEAN PLATELET VOLUME 8.7 fl (7.2-11.7); MONO # 1.2 K/uL (0.0-0.8); MONO % 9.5 % (0.0-10.0); NEUT # 9.3 K/uL (1.8-7.0); NEUT % 72.5 % (50.0-75.0); NRBC % 0.1 % (0.0-0.0); RBC 3.1 Mil/uL (3.80-5.20); RED CELL DISTRIBUTION WIDTH 13.8 % (11.5-14.5); WHITE BLOOD COUNT 12.8 K/uL (4.8-10.8)
[2018-09-08 05:38] LABS: CALCIUM 8.9 mg/dL (8.4-10.2)
--- NOTE | 2018-09-08 07:27 | CP.PCM.PN ---
<Frantz Tamayo - Last Filed: 09/08/18 07:38> Subjective - Date & Time of Evaluation Date of Evaluation: 09/08/18 Time of Evaluation: 07:38 - Subjective Subjective: General Surgery Note for Dr. Ferro Patient seen and examined at bedside. No acute event overnight. Patient reports pain is controlled. She denies fever/chills or nausea/vomiting. Patient is tolerating liquid diet. Admits to BM and flatus. Patient is requesting regular food. Objective - Vital Signs/Intake and Output Vital Signs (last 24 hours): Temp Pulse Resp BP Pulse Ox 98.2 F 96 H 18 177/94 H 98 09/08/18 04:57 09/08/18 04:57 09/08/18 04:57 09/08/18 04:57 09/08/18 04:57 - Medications Medications: Current Medications Cinacalcet (Sensipar) 30 mg PO DAILY [facility] Last Admin: 09/06/18 09:40 Dose: 30 mg Clonidine HCl (Catapres) 0.1 mg PO Q12 [facility] Last Admin: 09/07/18 20:37 Dose: 0.1 mg Heparin Sodium (Porcine) (Heparin) 5,000 units SC Q8 [facility]; Protocol Last Admin: 09/08/18 00:02 Dose: 5,000 units Hydromorphone HCl (Dilaudid) 0.5 mg IVP Q4 PRN PRN Reason: Pain, severe (8-10) Last Admin: 09/08/18 04:31 Dose: 0.5 mg Lactic Acid (Lac-Hydrin 12% Lotion (225 G)) 1 applic TOP TID [facility] Last Admin: 09/07/18 16:37 Dose: 1 applic Metoprolol Tartrate (Lopressor) 5 mg IVP Q6 PRN PRN Reason: Heart rate >90 Ondansetron HCl (Zofran Inj) 4 mg IVP Q6 PRN PRN Reason: Nausea/Vomiting Last Admin: 09/05/18 00:25 Dose: 4 mg Oxycodone/Acetaminophen (Percocet 5/325 Mg Tab) 1 tab PO Q4 PRN PRN Reason: Pain, moderate (4-7) Stop: 09/10/18 13:26 Last Admin: 09/07/18 16:39 Dose: 1 tab Pantoprazole Sodium (Protonix Inj) 40 mg IVP DAILY [facility] Last Admin: 09/07/18 12:47 Dose: 40 mg - Labs Labs: 09/08/18 05:13 09/08/18 05:13 PT 11.1 Seconds (9.8-13.1) 09/05/18 01:51 INR 1.0 09/05/18 01:51 APTT 29.1 Seconds (25.6-37.1) 09/05/18 01:51 - Constitutional Appears: No Acute Distress - Head Exam Head Exam: ATRAUMATIC, NORMOCEPHALIC - Eye Exam Eye Exam: EOMI, Normal appearance Pupil Exam: PERRL - ENT Exam ENT Exam: Mucous Membranes Moist - Respiratory Exam Respiratory Exam: NORMAL BREATHING PATTERN - Cardiovascular Exam Cardiovascular Exam: REGULAR RHYTHM - GI/Abdominal Exam GI & Abdominal Exam: Soft, Normal Bowel Sounds. absent: Distended, Firm, Guarding, Rigid, Tenderness, Rebound Additional comments: surgical site clean, dry and intact with ruthie - Extremities Exam Extremities Exam: Normal Capillary Refill - Back Exam Back Exam: absent: CVA tenderness (L), CVA tenderness (R) - Neurological Exam Neurological Exam: Alert, CN II-XII Intact, Oriented x3 - Psychiatric Exam Psychiatric exam: Normal Affect, Normal Mood - Skin Skin Exam: Dry, Intact, Normal Color, Warm Assessment and Plan - Assessment and Plan (Free Text) Assessment: 48F who presents with incarcerated incisional hernia and SBO, now s/p incarcerated incisional hernia primary repair with extensive lysis of adhesions and a serosal small bowel repair POD#3 Plan: -CLD, ADAT -Encourage OOB/Ambulation/IS -Continue DVT prophylaxis -PT -Management as per primary -Further recommendations as per Dr. Pillo Tamayo PGY2 <Darshan Spivey - Last Filed: 09/08/18 09:51> Subjective - Date & Time of Evaluation Time of Evaluation: 09:45 - Subjective Subjective: Patient was seen and examined at the bedside. Agree with resident's note above. Passing flatus, tolerating clear liquid diet. Objective - Vital Signs/Intake and Output Vital Signs (last 24 hours): Temp Pulse Resp BP Pulse Ox 98.5 F 93 H 18 158/105 H 96 09/08/18 08:00 09/08/18 08:00 09/08/18 08:00 09/08/18 08:00 09/08/18 08:00 - Medications Medications: Current Medications Cinacalcet (Sensipar) 30 mg PO DAILY [facility] Last Admin: 09/08/18 09:12 Dose: Not Given Clonidine HCl (Catapres) 0.1 mg PO Q12 [facility] Last Admin: 09/08/18 09:11 Dose: Not Given Heparin Sodium (Porcine) (Heparin) 5,000 units SC Q8 [facility]; Protocol Last Admin: 09/08/18 09:11 Dose: Not Given Hydromorphone HCl (Dilaudid) 0.5 mg IVP Q4 PRN PRN Reason: Pain, severe (8-10) Last Admin: 09/08/18 04:31 Dose: 0.5 mg Lactic Acid (Lac-Hydrin 12% Lotion (225 G)) 1 applic TOP TID [facility] Last Admin: 09/08/18 09:12 Dose: Not Given Metoprolol Tartrate (Lopressor) 5 mg IVP Q6 PRN PRN Reason: Heart rate >90 Ondansetron HCl (Zofran Inj) 4 mg IVP Q6 PRN PRN Reason: Nausea/Vomiting Last Admin: 09/05/18 00:25 Dose: 4 mg Oxycodone/Acetaminophen (Percocet 5/325 Mg Tab) 1 tab PO Q4 PRN PRN Reason: Pain, moderate (4-7) Stop: 09/10/18 13:26 Last Admin: 09/07/18 16:39 Dose: 1 tab Pantoprazole Sodium (Protonix Inj) 40 mg IVP DAILY [facility] Last Admin: 09/08/18 09:12 Dose: Not Given - Labs Labs: 09/08/18 05:13 09/08/18 05:13 PT 11.1 Seconds (9.8-13.1) 09/05/18 01:51 INR 1.0 09/05/18 01:51 APTT 29.1 Seconds (25.6-37.1) 09/05/18 01:51 Assessment and Plan - Assessment and Plan (Free Text) Plan: - start renal diet - Continue care as per medical team
--- NOTE | 2018-09-08 08:24 | CP.PCM.PN ---
Subjective - Date & Time of Evaluation Date of Evaluation: 09/08/18 Time of Evaluation: 08:23 - Subjective Subjective: pt doing well. no f/c, n/v/d. no pain. ngt removed. surgical notes reviewed. venessa liquids. bw noted. Objective - Vital Signs/Intake and Output Vital Signs (last 24 hours): Temp Pulse Resp BP Pulse Ox 98.2 F 96 H 18 177/94 H 98 09/08/18 04:57 09/08/18 04:57 09/08/18 04:57 09/08/18 04:57 09/08/18 04:57 - Medications Medications: Current Medications Cinacalcet (Sensipar) 30 mg PO DAILY [facility] Last Admin: 09/06/18 09:40 Dose: 30 mg Clonidine HCl (Catapres) 0.1 mg PO Q12 [facility] Last Admin: 09/07/18 20:37 Dose: 0.1 mg Heparin Sodium (Porcine) (Heparin) 5,000 units SC Q8 [facility]; Protocol Last Admin: 09/08/18 00:02 Dose: 5,000 units Hydromorphone HCl (Dilaudid) 0.5 mg IVP Q4 PRN PRN Reason: Pain, severe (8-10) Last Admin: 09/08/18 04:31 Dose: 0.5 mg Lactic Acid (Lac-Hydrin 12% Lotion (225 G)) 1 applic TOP TID [facility] Last Admin: 09/07/18 16:37 Dose: 1 applic Metoprolol Tartrate (Lopressor) 5 mg IVP Q6 PRN PRN Reason: Heart rate >90 Ondansetron HCl (Zofran Inj) 4 mg IVP Q6 PRN PRN Reason: Nausea/Vomiting Last Admin: 09/05/18 00:25 Dose: 4 mg Oxycodone/Acetaminophen (Percocet 5/325 Mg Tab) 1 tab PO Q4 PRN PRN Reason: Pain, moderate (4-7) Stop: 09/10/18 13:26 Last Admin: 09/07/18 16:39 Dose: 1 tab Pantoprazole Sodium (Protonix Inj) 40 mg IVP DAILY [facility] Last Admin: 09/07/18 12:47 Dose: 40 mg - Labs Labs: 09/08/18 05:13 09/08/18 05:13 PT 11.1 Seconds (9.8-13.1) 09/05/18 01:51 INR 1.0 09/05/18 01:51 APTT 29.1 Seconds (25.6-37.1) 09/05/18 01:51 - Constitutional Appears: Well, Non-toxic, No Acute Distress - Head Exam Head Exam: ATRAUMATIC, NORMAL INSPECTION, NORMOCEPHALIC - Eye Exam Eye Exam: EOMI, Normal appearance, PERRL Pupil Exam: NORMAL ACCOMODATION, PERRL - ENT Exam ENT Exam: Mucous Membranes Moist, Normal Exam - Neck Exam Neck Exam: Full ROM, Normal Inspection. absent: Lymphadenopathy - Respiratory Exam Respiratory Exam: Clear to Ausculation Bilateral, NORMAL BREATHING PATTERN - Cardiovascular Exam Cardiovascular Exam: REGULAR RHYTHM, RRR, +S1, +S2. absent: Murmur - GI/Abdominal Exam GI & Abdominal Exam: Soft, Hypoactive Bowel Sounds. absent: Tenderness - Extremities Exam Extremities Exam: Full ROM, Normal Capillary Refill, Normal Inspection. absent: Joint Swelling, Pedal Edema - Back Exam Back Exam: NORMAL INSPECTION - Neurological Exam Neurological Exam: Alert, Awake, CN II-XII Intact, Normal Gait, Oriented x3 - Psychiatric Exam Psychiatric exam: Normal Affect, Normal Mood - Skin Skin Exam: Dry, Intact, Normal Color, Warm Assessment and Plan (1) DVT prophylaxis Assessment & Plan: scd andae hose heparin Status: Acute (2) Bowel obstruction Assessment & Plan: s/p surgical repair ngt removed pain control venessa liquid po adv as venessa Status: Acute (3) ESRD (end stage renal disease) on dialysis Assessment & Plan: nephro esrd as per schedule Status: Acute (4) HTN (hypertension) Assessment & Plan: cont home meds Status: Acute
--- NOTE | 2018-09-08 08:39 | CP.PCM.PN ---
Subjective - Date & Time of Evaluation Date of Evaluation: 09/08/18 Time of Evaluation: 08:39 - Subjective Subjective: Dialysis note Patient awake and conscious feeling much better. Appetite improving Vital signs stable and noted And seen on hemodialysis Objective - Vital Signs/Intake and Output Vital Signs (last 24 hours): Temp Pulse Resp BP Pulse Ox 98.2 F 96 H 18 177/94 H 98 09/08/18 04:57 09/08/18 04:57 09/08/18 04:57 09/08/18 04:57 09/08/18 04:57 - Medications Medications: Current Medications Cinacalcet (Sensipar) 30 mg PO DAILY [facility] Last Admin: 09/06/18 09:40 Dose: 30 mg Clonidine HCl (Catapres) 0.1 mg PO Q12 [facility] Last Admin: 09/07/18 20:37 Dose: 0.1 mg Heparin Sodium (Porcine) (Heparin) 5,000 units SC Q8 [facility]; Protocol Last Admin: 09/08/18 00:02 Dose: 5,000 units Hydromorphone HCl (Dilaudid) 0.5 mg IVP Q4 PRN PRN Reason: Pain, severe (8-10) Last Admin: 09/08/18 04:31 Dose: 0.5 mg Lactic Acid (Lac-Hydrin 12% Lotion (225 G)) 1 applic TOP TID [facility] Last Admin: 09/07/18 16:37 Dose: 1 applic Metoprolol Tartrate (Lopressor) 5 mg IVP Q6 PRN PRN Reason: Heart rate >90 Ondansetron HCl (Zofran Inj) 4 mg IVP Q6 PRN PRN Reason: Nausea/Vomiting Last Admin: 09/05/18 00:25 Dose: 4 mg Oxycodone/Acetaminophen (Percocet 5/325 Mg Tab) 1 tab PO Q4 PRN PRN Reason: Pain, moderate (4-7) Stop: 09/10/18 13:26 Last Admin: 09/07/18 16:39 Dose: 1 tab Pantoprazole Sodium (Protonix Inj) 40 mg IVP DAILY [facility] Last Admin: 09/07/18 12:47 Dose: 40 mg - Labs Labs: 09/08/18 05:13 09/08/18 05:13 PT 11.1 Seconds (9.8-13.1) 09/05/18 01:51 INR 1.0 09/05/18 01:51 APTT 29.1 Seconds (25.6-37.1) 09/05/18 01:51 - Constitutional Appears: No Acute Distress - Eye Exam Eye Exam: Conjunctival injection - ENT Exam ENT Exam: Mucous Membranes Moist - Neck Exam Neck Exam: absent: Lymphadenopathy - Respiratory Exam Respiratory Exam: NORMAL BREATHING PATTERN. absent: Chest Wall Tenderness - GI/Abdominal Exam GI & Abdominal Exam: Soft, Normal Bowel Sounds - Extremities Exam Extremities Exam: absent: Calf Tenderness - Back Exam Back Exam: absent: CVA tenderness (L), CVA tenderness (R) - Neurological Exam Neurological Exam: Alert - Psychiatric Exam Psychiatric exam: Normal Affect - Skin Skin Exam: absent: Cyanosis Assessment and Plan (1) Bowel obstruction Status: Acute (2) ESRD (end stage renal disease) on dialysis Assessment & Plan: End-stage renal disease on hemodialysis TTS Hypertension incarcerated incisional ventral hernia primary repair. extensive lysis of adhesions. serosal small bowel repair History of hyperphosphatemia and secondary hyperparathyroidism which has been stable and controlled History of hepatitis C which has been treated in the past Recommendation She was seen on hemodialysis via left upper shunt Discussed with the dialysis nurse at the bedside Serum creatinine very high over 15 therefore we will give extra hemodialysis tomorrow as discussed with the dialysis nurse and the patient at the bedside. Ultrafiltration about 1500 cc NG tube out Surgical management antibiotics as per surgical team. Status: Acute
--- NOTE | 2018-09-08 14:14 | PN ---
DATE: 09/07/2018 SUBJECTIVE: The patient is seen at bedside and no complaints. No discharge. No pain. No fever, chills, nausea, vomiting, or diarrhea. The patient is uncomfortable as she has an NG tube in place, requesting this to be removed. The a.m. labs are noted. 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 REVIEW OF SYSTEMS: Negative. PHYSICAL EXAMINATION: Physical exam is negative. NG tube without any drainage at this time. HEART: Normal. LUNGS: Normal. ABDOMEN: Normal. Abdomen is soft, nontender. NEUROLOGIC: Distal pulse and motor sensation is intact. The patient is alert, oriented and responsive. DIAGNOSIS AND PLAN: Small-bowel obstruction, hiatal hernia status post lysis of adhesions, doing well. NG tube to be re-evaluated by Surgery for possible removal. Continue meds. Continue pain control as needed. Discharge planning discussed with social work. Discharge as per Surgery. End-stage renal disease, on dialysis. Continue to schedule as per Nephrology. Prophylactic measures, venous thromboembolism, sequential compression device and ae hose, gastrointestinal pepcid was given orally. The patient has no access, so Protonix was held. Once NG tube is removed, we will change Protonix to intravenous. GIFTY Jiang [email or web address]
[2018-09-09 05:25] LABS: HEMOGLOBIN 10.3 g/dL (12.0-16.0); MEAN CELL VOLUME 98.9 fl (81.0-99.0); MEAN CORPUSCULAR HEMOGLOBIN 32.6 pg (27.0-31.0); RBC 3.16 Mil/uL (3.80-5.20); WHITE BLOOD COUNT 11.4 K/uL (4.8-10.8)
[2018-09-09 05:39] LABS: CALCIUM 8.4 mg/dL (8.4-10.2)
--- NOTE | 2018-09-09 09:09 | CP.PCM.PN ---
Subjective - Date & Time of Evaluation Date of Evaluation: 09/09/18 Time of Evaluation: 09:08 - Subjective Subjective: pt doing well. in no apin/distress/sob. passing flatus. venessa solids well. for extradialysis today as per pt. bw and consults noted. Objective - Vital Signs/Intake and Output Vital Signs (last 24 hours): Temp Pulse Resp BP Pulse Ox 98.6 F 105 H 18 102/71 94 L 09/09/18 08:03 09/09/18 08:52 09/09/18 08:03 09/09/18 08:52 09/09/18 08:03 - Medications Medications: Current Medications Cinacalcet (Sensipar) 30 mg PO DAILY [facility] Last Admin: 09/09/18 08:51 Dose: 30 mg Clonidine HCl (Catapres) 0.1 mg PO Q12 [facility] Last Admin: 09/09/18 08:52 Dose: 0.1 mg Heparin Sodium (Porcine) (Heparin) 5,000 units SC Q8 [facility]; Protocol Last Admin: 09/09/18 08:52 Dose: 5,000 units Hydromorphone HCl (Dilaudid) 0.5 mg IVP Q4 PRN PRN Reason: Pain, severe (8-10) Last Admin: 09/09/18 05:02 Dose: 0.5 mg Lactic Acid (Lac-Hydrin 12% Lotion (225 G)) 1 applic TOP TID [facility] Last Admin: 09/09/18 08:53 Dose: 1 applic Metoprolol Tartrate (Lopressor) 25 mg PO Q12 [facility] Ondansetron HCl (Zofran Inj) 4 mg IVP Q6 PRN PRN Reason: Nausea/Vomiting Last Admin: 09/08/18 21:02 Dose: 4 mg Oxycodone/Acetaminophen (Percocet 5/325 Mg Tab) 1 tab PO Q4 PRN PRN Reason: Pain, moderate (4-7) Stop: 09/10/18 13:26 Last Admin: 09/07/18 16:39 Dose: 1 tab Pantoprazole Sodium (Protonix Ec Tab) 40 mg PO DAILY [facility] - Labs Labs: 09/09/18 05:00 09/09/18 05:00 PT 11.1 Seconds (9.8-13.1) 09/05/18 01:51 INR 1.0 09/05/18 01:51 APTT 29.1 Seconds (25.6-37.1) 09/05/18 01:51 - Constitutional Appears: Well, Non-toxic, No Acute Distress - Head Exam Head Exam: ATRAUMATIC, NORMAL INSPECTION, NORMOCEPHALIC - Eye Exam Eye Exam: EOMI, Normal appearance, PERRL Pupil Exam: NORMAL ACCOMODATION, PERRL - ENT Exam ENT Exam: Mucous Membranes Moist, Normal Exam - Neck Exam Neck Exam: Full ROM, Normal Inspection. absent: Lymphadenopathy - Respiratory Exam Respiratory Exam: Clear to Ausculation Bilateral, NORMAL BREATHING PATTERN - Cardiovascular Exam Cardiovascular Exam: REGULAR RHYTHM, RRR, +S1, +S2. absent: Murmur - GI/Abdominal Exam GI & Abdominal Exam: Soft, Normal Bowel Sounds. absent: Tenderness - Extremities Exam Extremities Exam: Full ROM, Normal Capillary Refill, Normal Inspection. absent: Joint Swelling, Pedal Edema - Back Exam Back Exam: NORMAL INSPECTION - Neurological Exam Neurological Exam: Alert, Awake, CN II-XII Intact, Normal Gait, Oriented x3 - Psychiatric Exam Psychiatric exam: Normal Affect, Normal Mood - Skin Skin Exam: Dry, Intact, Normal Color, Warm Assessment and Plan (1) DVT prophylaxis Status: Acute (2) Bowel obstruction Status: Acute (3) ESRD (end stage renal disease) on dialysis Status: Acute (4) HTN (hypertension) Status: Acute - Assessment and Plan (Free Text) Assessment: (1) DVT prophylaxis Assessment & Plan: scd andae hose heparin Status: Acute (2) Bowel obstruction Assessment & Plan: s/p surgical repair ngt removed pain control po adv as venessa venessa bland Status: Acute (3) ESRD (end stage renal disease) on dialysis Assessment & Plan: nephro esrd as per schedule extra session today Status: Acute (4) HTN (hypertension) Assessment & Plan: cont home meds Status: Acute
[2018-09-09] MEDS ORDERED: HYDROmorphone 0.5 mg/0.5 ml ISec IVP ONE (09:28)
[2018-09-09] MEDS: Pantoprazole 40 mg EC Tab PO SCH (09:41)
--- NOTE | 2018-09-09 09:59 | CP.PCM.PN ---
Subjective - Date & Time of Evaluation Date of Evaluation: 09/09/18 Time of Evaluation: 09:56 - Subjective Subjective: seen at bedside, resting comfortably. Pt is tolerating regular diet. Denies any nausea or vomiting. +flatus, no BM. Pt remains afebrile. gen: awake, alert, NAD HEENT: NC/AT, EOMI, PERRLA abd: soft, obese, midline incision with ruthie in place c/d/i, appropriate incision tenderness 48yo F s/p exlap with extensive lysis of adhesion, primary repair of incarcerated incisional hernia, repair of serosal tear -prn pain control -incentive spirometry -renal diet -ambulation -pt stable from surgery for dc, f/u as outpatient of dc Objective - Vital Signs/Intake and Output Vital Signs (last 24 hours): Temp Pulse Resp BP Pulse Ox 98.6 F 105 H 18 102/71 94 L 09/09/18 08:03 09/09/18 09:42 09/09/18 08:03 09/09/18 09:42 09/09/18 08:03 - Medications Medications: Current Medications Cinacalcet (Sensipar) 30 mg PO DAILY [facility] Last Admin: 09/09/18 08:51 Dose: 30 mg Clonidine HCl (Catapres) 0.1 mg PO Q12 [facility] Last Admin: 09/09/18 08:52 Dose: 0.1 mg Heparin Sodium (Porcine) (Heparin) 5,000 units SC Q8 [facility]; Protocol Last Admin: 09/09/18 08:52 Dose: 5,000 units Lactic Acid (Lac-Hydrin 12% Lotion (225 G)) 1 applic TOP TID [facility] Last Admin: 09/09/18 08:53 Dose: 1 applic Metoprolol Tartrate (Lopressor) 25 mg PO Q12 [facility] Last Admin: 09/09/18 09:42 Dose: 25 mg Ondansetron HCl (Zofran Inj) 4 mg IVP Q6 PRN PRN Reason: Nausea/Vomiting Last Admin: 09/08/18 21:02 Dose: 4 mg Oxycodone/Acetaminophen (Percocet 5/325 Mg Tab) 1 tab PO Q4 PRN PRN Reason: Pain, moderate (4-7) Stop: 09/10/18 13:26 Last Admin: 09/07/18 16:39 Dose: 1 tab Pantoprazole Sodium (Protonix Ec Tab) 40 mg PO DAILY [facility] Last Admin: 09/09/18 09:41 Dose: 40 mg - Labs Labs: 09/09/18 05:00 09/09/18 05:00 PT 11.1 Seconds (9.8-13.1) 09/05/18 01:51 INR 1.0 09/05/18 01:51 APTT 29.1 Seconds (25.6-37.1) 09/05/18 01:51
--- NOTE | 2018-09-09 12:43 | CP.PCM.PN ---
Subjective - Date & Time of Evaluation Date of Evaluation: 09/09/18 Time of Evaluation: 11:00 - Subjective Subjective: Dialysis note Patient awake and conscious receiving extra hemodialysis today because of the very high creatinine. Vital signs stable Discussed with the dialysis nurse at the bedside Ruffin feeling much better Objective - Vital Signs/Intake and Output Vital Signs (last 24 hours): Temp Pulse Resp BP Pulse Ox 98.2 F 99 H 18 99/68 L 96 09/09/18 12:06 09/09/18 12:06 09/09/18 12:06 09/09/18 12:06 09/09/18 12:06 - Medications Medications: Current Medications Cinacalcet (Sensipar) 30 mg PO DAILY [facility] Last Admin: 09/09/18 08:51 Dose: 30 mg Clonidine HCl (Catapres) 0.1 mg PO Q12 [facility] Last Admin: 09/09/18 08:52 Dose: 0.1 mg Heparin Sodium (Porcine) (Heparin) 5,000 units SC Q8 [facility]; Protocol Last Admin: 09/09/18 08:52 Dose: 5,000 units Lactic Acid (Lac-Hydrin 12% Lotion (225 G)) 1 applic TOP TID [facility] Last Admin: 09/09/18 08:53 Dose: 1 applic Metoprolol Tartrate (Lopressor) 25 mg PO Q12 [facility] Last Admin: 09/09/18 09:42 Dose: 25 mg Ondansetron HCl (Zofran Inj) 4 mg IVP Q6 PRN PRN Reason: Nausea/Vomiting Last Admin: 09/08/18 21:02 Dose: 4 mg Oxycodone/Acetaminophen (Percocet 5/325 Mg Tab) 1 tab PO Q4 PRN PRN Reason: Pain, moderate (4-7) Stop: 09/10/18 13:26 Last Admin: 09/07/18 16:39 Dose: 1 tab Pantoprazole Sodium (Protonix Ec Tab) 40 mg PO DAILY [facility] Last Admin: 09/09/18 09:41 Dose: 40 mg - Labs Labs: 09/09/18 05:00 09/09/18 05:00 PT 11.1 Seconds (9.8-13.1) 09/05/18 01:51 INR 1.0 09/05/18 01:51 APTT 29.1 Seconds (25.6-37.1) 09/05/18 01:51 - Constitutional Appears: No Acute Distress - Eye Exam Eye Exam: Conjunctival injection - ENT Exam ENT Exam: Mucous Membranes Moist - Neck Exam Neck Exam: absent: Lymphadenopathy - Respiratory Exam Respiratory Exam: NORMAL BREATHING PATTERN. absent: Chest Wall Tenderness - Cardiovascular Exam Cardiovascular Exam: absent: Gallop, JVD, Rubs - GI/Abdominal Exam GI & Abdominal Exam: Soft, Normal Bowel Sounds - Extremities Exam Extremities Exam: absent: Calf Tenderness - Back Exam Back Exam: absent: CVA tenderness (L), CVA tenderness (R) - Neurological Exam Neurological Exam: Alert - Psychiatric Exam Psychiatric exam: Normal Affect - Skin Skin Exam: absent: Cyanosis Assessment and Plan (1) Bowel obstruction Status: Acute (2) ESRD (end stage renal disease) on dialysis Assessment & Plan: End-stage renal disease on hemodialysis TTS Hypertension incarcerated incisional ventral hernia primary repair. extensive lysis of adhesions. serosal small bowel repair History of hyperphosphatemia and secondary hyperparathyroidism which has been stable and controlled History of hepatitis C which has been treated in the past Recommendation She was seen on hemodialysis via left upper shunt, today patient having extra hemodialysis treatment Discussed with the dialysis nurse at the bedside Serum creatinine very high over 15 therefore we will give extra hemodialysis now with minimal ultrafiltration NG tube out Surgical management antibiotics as per surgical team. Status: Acute
[2018-09-09] MEDS: Oxycodone/Acetaminophen 5/325 mg Tab PO PRN (22:47)
[2018-09-10 03:39] LABS: SQUAMOUS EPITHIAL 219 /hpf (0-5); URINE BACTERIA FEW (<OCC); URINE BILIRUBIN NEGATIVE (NEGATIVE); URINE BLOOD SMALL (NEGATIVE); URINE CLARITY TURBID (Clear); URINE COLOR AMBER (YELLOW); URINE GLUCOSE (UA) NEG (NEGATIVE); URINE LEUKOCYTE ESTERASE MOD Leu/uL (Negative); URINE PROTEIN 100 mg/dL (NEGATIVE); URINE UROBILINOGEN 0.2-1.0 mg/dL (0.2-1.0)
[2018-09-10 07:12] LABS: BASO % 0.3 % (0.0-2.0); EOS # 0.3 K/uL (0.0-0.7); EOS % 1.9 % (0.0-4.0); HEMOGLOBIN 9.6 g/dL (12.0-16.0); LYMPH # 2.5 K/uL (1.0-4.3); LYMPH % 18.9 % (20.0-40.0); MEAN CELL VOLUME 99.3 fl (81.0-99.0); MEAN CORPUSCULAR HGB CONC 33.2 g/dL (33.0-37.0); MEAN PLATELET VOLUME 8.7 fl (7.2-11.7); MONO # 2.3 K/uL (0.0-0.8); NEUT # 8.3 K/uL (1.8-7.0); NEUT % 61.9 % (50.0-75.0); RBC 2.91 Mil/uL (3.80-5.20); WHITE BLOOD COUNT 13.4 K/uL (4.8-10.8)
[2018-09-10 07:14] LABS: ALBUMIN 3.8 g/dL (3.5-5.0); CALCIUM 8.9 mg/dL (8.4-10.2)
--- NOTE | 2018-09-10 07:47 | CP.PCM.PN ---
<Anushka Gould - Last Filed: 09/10/18 08:39> Subjective - Date & Time of Evaluation Date of Evaluation: 09/10/18 Time of Evaluation: 07:47 - Subjective Subjective: General Surgery Note: Dr. Ferro Patient seen and examined this morning POD#5 incarcerated incisional hernia primary repair with extensive lysis of adhesions and a serosal small bowel repair. Patient resting comfortably and in NAD with no acute events overnight. Admits + flatus, denies BM. Denies nausea/vomiting/fever/chills. Objective - Vital Signs/Intake and Output Vital Signs (last 24 hours): Temp Pulse Resp BP Pulse Ox 97.9 F 89 18 123/87 96 09/10/18 07:46 09/10/18 07:46 09/10/18 07:46 09/10/18 07:46 09/10/18 07:46 - Medications Medications: Current Medications Acetaminophen (Tylenol 325mg Tab) 650 mg PO Q6 PRN PRN Reason: Pain, Mild (1-3) Last Admin: 09/09/18 19:38 Dose: 650 mg Cinacalcet (Sensipar) 30 mg PO DAILY [facility] Last Admin: 09/09/18 08:51 Dose: 30 mg Clonidine HCl (Catapres) 0.1 mg PO Q12 [facility] Last Admin: 09/09/18 21:22 Dose: Not Given Heparin Sodium (Porcine) (Heparin) 5,000 units SC Q8 [facility]; Protocol Last Admin: 09/10/18 00:14 Dose: 5,000 units Lactic Acid (Lac-Hydrin 12% Lotion (225 G)) 1 applic TOP TID [facility] Last Admin: 09/09/18 16:51 Dose: 1 applic Metoprolol Tartrate (Lopressor) 25 mg PO Q12 [facility] Last Admin: 09/09/18 21:23 Dose: Not Given Ondansetron HCl (Zofran Inj) 4 mg IVP Q6 PRN PRN Reason: Nausea/Vomiting Last Admin: 09/08/18 21:02 Dose: 4 mg Oxycodone/Acetaminophen (Percocet 5/325 Mg Tab) 1 tab PO Q4 PRN PRN Reason: Pain, moderate (4-7) Stop: 09/10/18 13:26 Last Admin: 09/09/18 22:47 Dose: 1 tab Pantoprazole Sodium (Protonix Ec Tab) 40 mg PO DAILY [facility] Last Admin: 09/09/18 09:41 Dose: 40 mg Sevelamer HCl (Renagel) 2,400 mg PO TID [facility] Last Admin: 09/09/18 16:53 Dose: 2,400 mg Tramadol HCl (Ultram) 50 mg PO Q12 PRN PRN Reason: Pain, moderate (4-7) Last Admin: 09/10/18 03:59 Dose: 50 mg - Labs Labs: 09/10/18 04:20 09/10/18 04:20 PT 11.1 Seconds (9.8-13.1) 09/05/18 01:51 INR 1.0 09/05/18 01:51 APTT 29.1 Seconds (25.6-37.1) 09/05/18 01:51 - Constitutional Appears: Non-toxic, No Acute Distress - Head Exam Head Exam: ATRAUMATIC, NORMOCEPHALIC - Eye Exam Eye Exam: Normal appearance - ENT Exam ENT Exam: Mucous Membranes Moist - Cardiovascular Exam Cardiovascular Exam: REGULAR RHYTHM - GI/Abdominal Exam GI & Abdominal Exam: Soft. absent: Tenderness - Extremities Exam Extremities Exam: Normal Capillary Refill. absent: Calf Tenderness - Neurological Exam Neurological Exam: Alert, Awake, Oriented x3 - Psychiatric Exam Psychiatric exam: Normal Affect, Normal Mood Assessment and Plan - Assessment and Plan (Free Text) Assessment: 48 year old female with incarcerated incisional hernia and SBO, POD#5 incarcerated incisional hernia primary repair with extensive lysis of adhesions and a serosal small bowel repair Plan: - C/w with pain control PRN - Renal diet - DVT prophylaxis - C/w incentive spirometry - Ambulation encouraged - Patient stable from surgery standpoint - Further recommendations per Dr. Ferro <Dickson Ferro - Last Filed: 09/10/18 11:54> Objective - Vital Signs/Intake and Output Vital Signs (last 24 hours): Temp Pulse Resp BP Pulse Ox 97.8 F 93 H 18 132/94 H 95 09/10/18 11:52 09/10/18 11:52 09/10/18 11:52 09/10/18 11:52 09/10/18 11:52 - Medications Medications: Current Medications Acetaminophen (Tylenol 325mg Tab) 650 mg PO Q6 PRN PRN Reason: Pain, Mild (1-3) Last Admin: 09/09/18 19:38 Dose: 650 mg Cinacalcet (Sensipar) 30 mg PO DAILY [facility] Last Admin: 09/10/18 09:06 Dose: 30 mg Clonidine HCl (Catapres) 0.1 mg PO Q12 [facility] Last Admin: 09/10/18 09:10 Dose: Not Given Heparin Sodium (Porcine) (Heparin) 5,000 units SC Q8 [facility]; Protocol Last Admin: 09/10/18 09:04 Dose: 5,000 units Ceftriaxone Sodium 1 gm/ (Sodium Chloride) 100 mls @ 100 mls/hr IVPB DAILY [facility]; Protocol Lactic Acid (Lac-Hydrin 12% Lotion (225 G)) 1 applic TOP TID [facility] Last Admin: 09/10/18 09:05 Dose: 1 applic Metoprolol Tartrate (Lopressor) 25 mg PO Q12 [facility] Last Admin: 09/10/18 09:11 Dose: Not Given Ondansetron HCl (Zofran Inj) 4 mg IVP Q6 PRN PRN Reason: Nausea/Vomiting Last Admin: 09/08/18 21:02 Dose: 4 mg Oxycodone/Acetaminophen (Percocet 5/325 Mg Tab) 1 tab PO Q4 PRN PRN Reason: Pain, moderate (4-7) Stop: 09/10/18 13:26 Last Admin: 09/10/18 09:04 Dose: 1 tab Pantoprazole Sodium (Protonix Ec Tab) 40 mg PO DAILY [facility] Last Admin: 09/10/18 09:07 Dose: 40 mg Sevelamer HCl (Renagel) 2,400 mg PO TID [facility] Last Admin: 09/10/18 09:06 Dose: 2,400 mg Tramadol HCl (Ultram) 50 mg PO Q12 PRN PRN Reason: Pain, moderate (4-7) Last Admin: 09/10/18 03:59 Dose: 50 mg - Labs Labs: 09/10/18 04:20 09/10/18 04:20 PT 11.1 Seconds (9.8-13.1) 09/05/18 01:51 INR 1.0 09/05/18 01:51 APTT 29.1 Seconds (25.6-37.1) 09/05/18 01:51 Assessment and Plan - Assessment and Plan (Free Text) Plan: pt tolerating diet, passing flatus. abd: soft, obese, minimal incisional tenderness, incision with ruthie in place -cont renal diet -stable for dc
[2018-09-10] MEDS: Oxycodone/Acetaminophen 5/325 mg Tab PO PRN (09:04)
[2018-09-10] MEDS: Pantoprazole 40 mg EC Tab PO SCH (09:07)
--- NOTE | 2018-09-10 09:35 | CP.PCM.PN ---
Subjective - Date & Time of Evaluation Date of Evaluation: 09/10/18 Time of Evaluation: 09:33 - Subjective Subjective: pt doing well. w/o distress/ pain controlled no f/,c nv/d. bw and urine noted c leared by surgery for dc will be dc after dialysis today. Objective - Vital Signs/Intake and Output Vital Signs (last 24 hours): Temp Pulse Resp BP Pulse Ox 97.9 F 89 18 123/87 96 09/10/18 07:46 09/10/18 07:46 09/10/18 07:46 09/10/18 07:46 09/10/18 07:46 - Medications Medications: Current Medications Acetaminophen (Tylenol 325mg Tab) 650 mg PO Q6 PRN PRN Reason: Pain, Mild (1-3) Last Admin: 09/09/18 19:38 Dose: 650 mg Cinacalcet (Sensipar) 30 mg PO DAILY [facility] Last Admin: 09/10/18 09:06 Dose: 30 mg Clonidine HCl (Catapres) 0.1 mg PO Q12 [facility] Last Admin: 09/10/18 09:10 Dose: Not Given Heparin Sodium (Porcine) (Heparin) 5,000 units SC Q8 [facility]; Protocol Last Admin: 09/10/18 09:04 Dose: 5,000 units Ceftriaxone Sodium 1 gm/ (Sodium Chloride) 100 mls @ 100 mls/hr IVPB DAILY [facility]; Protocol Lactic Acid (Lac-Hydrin 12% Lotion (225 G)) 1 applic TOP TID [facility] Last Admin: 09/10/18 09:05 Dose: 1 applic Metoprolol Tartrate (Lopressor) 25 mg PO Q12 [facility] Last Admin: 09/10/18 09:11 Dose: Not Given Ondansetron HCl (Zofran Inj) 4 mg IVP Q6 PRN PRN Reason: Nausea/Vomiting Last Admin: 09/08/18 21:02 Dose: 4 mg Oxycodone/Acetaminophen (Percocet 5/325 Mg Tab) 1 tab PO Q4 PRN PRN Reason: Pain, moderate (4-7) Stop: 09/10/18 13:26 Last Admin: 09/10/18 09:04 Dose: 1 tab Pantoprazole Sodium (Protonix Ec Tab) 40 mg PO DAILY [facility] Last Admin: 09/10/18 09:07 Dose: 40 mg Sevelamer HCl (Renagel) 2,400 mg PO TID [facility] Last Admin: 09/10/18 09:06 Dose: 2,400 mg Tramadol HCl (Ultram) 50 mg PO Q12 PRN PRN Reason: Pain, moderate (4-7) Last Admin: 09/10/18 03:59 Dose: 50 mg - Labs Labs: 09/10/18 04:20 09/10/18 04:20 PT 11.1 Seconds (9.8-13.1) 09/05/18 01:51 INR 1.0 09/05/18 01:51 APTT 29.1 Seconds (25.6-37.1) 09/05/18 01:51 - Constitutional Appears: Well, Non-toxic, No Acute Distress - Head Exam Head Exam: ATRAUMATIC, NORMAL INSPECTION, NORMOCEPHALIC - Eye Exam Eye Exam: EOMI, Normal appearance, PERRL Pupil Exam: NORMAL ACCOMODATION, PERRL - ENT Exam ENT Exam: Mucous Membranes Moist, Normal Exam - Neck Exam Neck Exam: Full ROM, Normal Inspection. absent: Lymphadenopathy - Respiratory Exam Respiratory Exam: Clear to Ausculation Bilateral, NORMAL BREATHING PATTERN - Cardiovascular Exam Cardiovascular Exam: REGULAR RHYTHM, RRR, +S1, +S2. absent: Murmur - GI/Abdominal Exam GI & Abdominal Exam: Soft, Normal Bowel Sounds. absent: Tenderness - Extremities Exam Extremities Exam: Full ROM, Normal Capillary Refill, Normal Inspection. absent: Joint Swelling, Pedal Edema - Back Exam Back Exam: NORMAL INSPECTION - Neurological Exam Neurological Exam: Alert, Awake, CN II-XII Intact, Normal Gait, Oriented x3 - Psychiatric Exam Psychiatric exam: Normal Affect, Normal Mood - Skin Skin Exam: Dry, Intact, Normal Color, Warm Assessment and Plan (1) DVT prophylaxis Assessment & Plan: scd and ae hose heparin Status: Acute (2) Bowel obstruction Assessment & Plan: cleared by surgery pain control po as venessa Status: Acute (3) ESRD (end stage renal disease) on dialysis Assessment & Plan: dialysis nephro Status: Acute (4) HTN (hypertension) Assessment & Plan: cont home meds Status: Acute - Assessment and Plan (Free Text) Assessment: 1-abn ua w/ presence of elev wbc. pt is mostly anuric will give dose of rocephin in hospital and dc home renal dose of augmentin. pt is unable to make enough for c/s. f/u rmg 1-2 days for f/u
[2018-09-10] MEDS ORDERED: EPOETIN ALFA 10,000 UNIT/ML ML IV ONE (10:09)
--- NOTE | 2018-09-10 10:14 | CP.PCM.PN ---
Subjective - Date & Time of Evaluation Date of Evaluation: 09/10/18 Time of Evaluation: 10:13 - Subjective Subjective: Dialysis note Patient seen on hemodialysis now Patient stable and tolerating very well. Ultrafiltration 2500 cc Vital signs stable Objective - Vital Signs/Intake and Output Vital Signs (last 24 hours): Temp Pulse Resp BP Pulse Ox 97.9 F 89 18 123/87 96 09/10/18 07:46 09/10/18 07:46 09/10/18 07:46 09/10/18 07:46 09/10/18 07:46 - Medications Medications: Current Medications Acetaminophen (Tylenol 325mg Tab) 650 mg PO Q6 PRN PRN Reason: Pain, Mild (1-3) Last Admin: 09/09/18 19:38 Dose: 650 mg Cinacalcet (Sensipar) 30 mg PO DAILY [facility] Last Admin: 09/10/18 09:06 Dose: 30 mg Clonidine HCl (Catapres) 0.1 mg PO Q12 [facility] Last Admin: 09/10/18 09:10 Dose: Not Given Epoetin Felice (Procrit) 10,000 unit IV ONCE ONE Stop: 09/10/18 10:10 Heparin Sodium (Porcine) (Heparin) 5,000 units SC Q8 [facility]; Protocol Last Admin: 09/10/18 09:04 Dose: 5,000 units Ceftriaxone Sodium 1 gm/ (Sodium Chloride) 100 mls @ 100 mls/hr IVPB DAILY [facility]; Protocol Lactic Acid (Lac-Hydrin 12% Lotion (225 G)) 1 applic TOP TID [facility] Last Admin: 09/10/18 09:05 Dose: 1 applic Metoprolol Tartrate (Lopressor) 25 mg PO Q12 [facility] Last Admin: 09/10/18 09:11 Dose: Not Given Ondansetron HCl (Zofran Inj) 4 mg IVP Q6 PRN PRN Reason: Nausea/Vomiting Last Admin: 09/08/18 21:02 Dose: 4 mg Oxycodone/Acetaminophen (Percocet 5/325 Mg Tab) 1 tab PO Q4 PRN PRN Reason: Pain, moderate (4-7) Stop: 09/10/18 13:26 Last Admin: 09/10/18 09:04 Dose: 1 tab Pantoprazole Sodium (Protonix Ec Tab) 40 mg PO DAILY [facility] Last Admin: 09/10/18 09:07 Dose: 40 mg Sevelamer HCl (Renagel) 2,400 mg PO TID [facility] Last Admin: 09/10/18 09:06 Dose: 2,400 mg Tramadol HCl (Ultram) 50 mg PO Q12 PRN PRN Reason: Pain, moderate (4-7) Last Admin: 09/10/18 03:59 Dose: 50 mg - Labs Labs: 09/10/18 04:20 09/10/18 04:20 PT 11.1 Seconds (9.8-13.1) 09/05/18 01:51 INR 1.0 09/05/18 01:51 APTT 29.1 Seconds (25.6-37.1) 09/05/18 01:51 - Constitutional Appears: No Acute Distress - Eye Exam Eye Exam: Conjunctival injection - ENT Exam ENT Exam: Mucous Membranes Moist - Neck Exam Neck Exam: absent: Lymphadenopathy - Respiratory Exam Respiratory Exam: NORMAL BREATHING PATTERN. absent: Chest Wall Tenderness, Rhonchi - Cardiovascular Exam Cardiovascular Exam: absent: Gallop, JVD, Rubs - GI/Abdominal Exam GI & Abdominal Exam: Soft, Normal Bowel Sounds - Extremities Exam Extremities Exam: absent: Calf Tenderness - Back Exam Back Exam: absent: CVA tenderness (L), CVA tenderness (R) - Neurological Exam Neurological Exam: Alert - Psychiatric Exam Psychiatric exam: Normal Affect - Skin Skin Exam: absent: Cyanosis Assessment and Plan (1) Bowel obstruction Status: Acute (2) ESRD (end stage renal disease) on dialysis Assessment & Plan: End-stage renal disease on hemodialysis TTS Leukocytosis noted today Hypertension incarcerated incisional ventral hernia primary repair. extensive lysis of adhesions. serosal small bowel repair History of hyperphosphatemia and secondary hyperparathyroidism which has been stable and controlled History of hepatitis C which has been treated in the past Recommendation Rule out urine tract infection given Rocephin right now and culture pending She was seen on hemodialysis via left upper shunt, today patient having her regular hemodialysis schedule. Discussed with the dialysis nurse at the bedside Serum creatinine very high over 15 therefore we will give extra hemodialysis now with minimal ultrafiltration NG tube out Surgical management antibiotics as per surgical team. Status: Acute Status: Acute
[2018-09-10 16:23] VITALS: BP 109/79; PULSE 97; RESP 16; TEMP 98.2
[2018-09-13 15:58] VITALS: O2SAT 98
== END 2018-09-10 16:52 | disposition home or self-care (01) | DRG 148 ==
LOC: H.ER 09:49 → OBSVTOIN 15:57 → H.ERHOLD 15:57 → H.ICU/CCU 09-05 11:44 → H.TEL 09-05 14:02
PROVIDERS: ADMIT Family Medicine; ATTEND Family Medicine
PROC: 0DQ80ZZ Repair Small Intestine, Open Approach (ICD-10-PCS; 2018-09-05)
PROC: 5A1D70Z Performance of Urinary Filtration, Intermittent, Less than 6 Hours Per Day (ICD-10-PCS; 2018-09-05)
PROC: 0WQF0ZZ Repair Abdominal Wall, Open Approach (ICD-10-PCS; principal; 2018-09-05 02:30)
PROC: 02HV33Z Insertion of Infusion Device into Superior Vena Cava, Percutaneous Approach (ICD-10-PCS; 2018-09-07)
PROC: B518ZZA Fluoroscopy of Superior Vena Cava, Guidance (ICD-10-PCS; 2018-09-07)
PROC: 3E04329 Introduction of Other Anti-infective into Central Vein, Percutaneous Approach (ICD-10-PCS; 2018-09-07)
PROC: 5A1D70Z Performance of Urinary Filtration, Intermittent, Less than 6 Hours Per Day (ICD-10-PCS; 2018-09-08)
PROC: 5A1D70Z Performance of Urinary Filtration, Intermittent, Less than 6 Hours Per Day (ICD-10-PCS; 2018-09-10)
DX: K43.0 Incisional hernia with obstruction, without gangrene (principal); I12.0 Hypertensive chronic kidney disease with stage 5 chronic kidney disease or end stage renal disease; N18.6 End stage renal disease; K66.0 Peritoneal adhesions (postprocedural) (postinfection); N25.81 Secondary hyperparathyroidism of renal origin; D63.1 Anemia in chronic kidney disease; Z99.2 Dependence on renal dialysis; D72.829 Elevated white blood cell count, unspecified; E66.9 Obesity, unspecified; Z68.42 Body mass index [BMI] 45.0-49.9, adult; F32.9 Major depressive disorder, single episode, unspecified; F41.9 Anxiety disorder, unspecified; F17.210 Nicotine dependence, cigarettes, uncomplicated; Z86.19 Personal history of other infectious and parasitic diseases; Z90.81 Acquired absence of spleen; Z98.891 History of uterine scar from previous surgery